=== PATIENT | male | born 1965 | race Caucasian/White ===

== ENCOUNTER 2019-08-02 22:39 | Emergency (ER) | payer MEDICAID, SELFPAY | END 2019-08-02 23:16 | disposition home or self-care (01) | PROVIDERS: Emergency Provider Emergency Medicine; Visit Provider Emergency Medicine | DX: S39.012A Strain of muscle, fascia and tendon of lower back, initial encounter (principal); M54.41 Lumbago with sciatica, right side; X50.9XXA Other and unspecified overexertion or strenuous movements or postures, initial encounter; J44.9 Chronic obstructive pulmonary disease, unspecified; F17.210 Nicotine dependence, cigarettes, uncomplicated | CPT/HCPCS: 96372; 99284; J1885 ==

== ENCOUNTER 2019-08-17 00:27 | Emergency (ER) | payer MEDICAID, SELFPAY ==
[2019-08-17 00:31] VITALS: BP 149/94; PULSE 98; RESP 18; TEMP 36.4; O2SAT 97; BMI 25.8
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
--- NOTE | 2019-08-17 00:39 | PC.NURSE ---
Patient is a poor historian, upon asking him where he was patient stated I'm in [place], its may and I need to go víctor shopping . Patient keeps repeating please, don't be mad at me . Patient is aware that he lives in [place].
[2019-08-17 01:17] LABS: Basophils # 0.1 10^3/uL (0.0-0.1); Basophils % 0.8 %; Eosinophils # 0.3 10^3/uL (0.0-0.8); Eosinophils % 2.7 %; Hematocrit 49.1 % (42.0-52.0); Lymphocytes # 2.5 10^3/uL (0.8-4.8); Lymphocytes % 19.6 %; Mean Corpuscular HGB Conc 34.6 g/dL (30.0-36.0); Mean Corpuscular Hemoglobin 32.7 pg (28.0-34.0); Mean Corpuscular Volume 94.4 fL (80-94); Mean Platelet Volume 9.3 fL (7.4-10.4); Monocytes # 0.7 10^3/uL (0.2-0.9); Monocytes % 5.2 %; Neutrophils % 71.4 %; Nucleated Red Blood Cells % 0 %; Platelet Count 230 10^3/cmm (130-400); Red Cell Distribution Width 12.6 % (12.1-15.1); White Blood Count 12.6 10^3/uL (4.0-10.0)
[2019-08-17] MEDS: iohexol 300 mg/mL 100 mL Btl IV (01:27)
[2019-08-17 01:33] LABS: INR 0.92 (0.8-1.2)
[2019-08-17 01:38] LABS: Alanine Aminotransferase 22 U/L (0-41); Albumin Level 4.5 g/dL (3.5-5.2); Alkaline Phosphatase 98 IU/L (40-130); Anion Gap 17.8 (5-19); Aspartate Amino Transferase 36 U/L (0-40); Blood Urea Nitrogen 4 mg/dL (6-20); Calcium 9.3 mg/Dl (8.6-10.0); Carbon Dioxide 24 mmol/L (22-29); Chloride 103 mmol/L (98-107); Globulin 3.4 g/dL (1.3-4.6); Glomerular Filtration Rate 140.9 mL/min (90-130); Glucose 102 mg/dL (74-109); Potassium 3.8 mmol/L (3.5-5.1); Sodium 141 mmol/L (136-145); Total Bilirubin 0.3 mg/dL (0.15-1.2); Total Protein 7.9 g/dL (6.6-8.7)
[2019-08-17 01:44] VITALS: RESP 18
[2019-08-17] MEDS: morphine 4 mg/mL SDV 1 mL IVP (01:44)
[2019-08-17 03:07] LABS: Alcohol Level 335 mg/dL (0-10)
--- NOTE | 2019-08-17 10:47 | DCPLANNER ---
manager nuclear had message to schedule a follow up appointment for patient with Dr. Lawrence, ENT. manager nuclear called the office of Dr. Lawrence, spoke with Deonna, a follow up appointment was scheduled for Friday, August 25, 2019 at 1:[address] Lawrence. Clinic will call patient with appointment information.
--- NOTE | 2019-08-27 15:42 | DCPLANNER ---
Patient did not attend appointment scheduled for 08.25.19 with ENT.
== END 2019-08-17 02:19 | disposition home or self-care (01) ==
PROVIDERS: Emergency Provider Emergency Medicine
DX: S02.2XXA Fracture of nasal bones, initial encounter for closed fracture (principal); Y09 Assault by unspecified means; F17.210 Nicotine dependence, cigarettes, uncomplicated
CPT/HCPCS: 36415; 70450; 70486; 71260; 72125; 74177; 80053; 80307; 85025; 85610; 96375; 99281; J2270; Q9967

== ENCOUNTER 2019-09-18 08:40 | Emergency (ER) | payer MEDICAID, SELFPAY ==
[2019-09-18 08:40] VITALS: BMI 23.7
[2019-09-18 08:44] VITALS: BP 110/72; PULSE 95; RESP 20; TEMP 36.5; O2SAT 96
--- NOTE | 2019-09-18 08:54 | PC.NURSE ---
Patient presents to the ER for dental pain that has been present for 3 days. Patient states the pain is in both the upper and lower teeth, states pain is throbbing and constant. Patient smells of ETOH in ER, states he stopped drinking about 2 hours ago.
--- NOTE | 2019-09-18 08:55 | ED_ITS ---
Documented by User: [email or web address] Encarnacion 09/18/19 14:59 HPI - Dental/Oral General: Chief complaint: Dental/Oral Stated complaint: DENTAL PAIN; ETOH Time Seen by Provider: 09/18/19 08:46 History of Present Illness: MD Complaint: tooth pain Onset (ago): day(s) (3) Duration: constant Severity: moderate Severity scale (1-10): 8 Relieving factors: nothing Exacerbating factors: nothing Context: history of dental caries and poor dental care Associated symptoms: Reports gum swelling; Denies fever(s) Review of Systems Const: Denies: fever Eyes: Denies: change in vision ENMT: Reports: dental pain Card: Denies: chest pain, shortness of breath on exertion or shortness of breath when lying down Resp: Denies: shortness of breath GI: Denies: abdominal pain, nausea, vomiting, diarrhea, constipation, change in bowel habits or blood in stool : Denies: flank pain, painful urination or blood in urine Neuro: Reports: headache (due to dental pain) PFS ED PFSH: Social History Smoking and tobacco status: current every day smoker Physical Exam Const: COMMON NORMALS: oriented x3 HENMT: COMMON NORMALS: normocephalic HEAD & SCALP: normocephalic MOUTH: oral and palatal mucosa normal TEETH & GINGIVA: Yes caries (multiple throughout mouth), Yes gingiva abnormal edematous and diffusely erythematous and Yes poor dentition THROAT: posterior oropharynx normal and uvula midline Neck/C-Spine: COMMON NORMALS: supple GENERAL: Yes normal visual inspection Resp: COMMON NORMALS: normal respiratory effort, no retractions, no use of accessory muscles and clear to auscultation bilaterally AUSCULTATION: clear to auscultation bilaterally Cardio: COMMON NORMALS: regular rate, regular rhythm, S1 normal heart sound, S2 normal heart sound, no gallops, no clicks, no murmurs and peripheral pulses 2+ throughout RATE: regular rate RHYTHM: regular rhythm HEART SOUNDS: S1 normal and S2 normal PERIPHERAL PULSES: pulses 2+ throughout GI: COMMON NORMALS: normal to inspection, nondistended, normoactive bowel sounds, soft to palpation, non-tender and no masses PALPATION: Yes soft : COMMON NORMALS: Yes no CVA tenderness BLADDER/KIDNEY EXAM: Yes no CVA tenderness Back/Pelvis: COMMON NORMALS: no CVA tenderness Extremity: COMMON NORMALS: normal to inspection Neuro: COMMON NORMALS: oriented x3 and moves all extremities Skin: GENERAL SKIN EXAM: dry skin Course Vital Signs: Vital signs: Vital Signs Temperature 97.9 F 09/18/19 09:35 Pulse Rate 81 09/18/19 09:35 Respiratory Rate 18 09/18/19 09:35 Blood Pressure 137/87 09/18/19 09:35 Pulse Oximetry 96 09/18/19 09:35 Discharge Plan Discharge Patient Disposition: Home, Self-Care Clinical Impression: Toothache, Dental caries Condition: Stable Prescriptions: New clindamycin HCl 150 mg capsule 300 mg PO Q6H 7 Days Qty: 56 RF: 0 Discharge Orders: Discharge Order (Routine); Ordered 09/18/19 Ordered By: Pavan Marie Referrals: NOT ON FILE,DOCTOR [Primary Care Provider] - Discharge Diet: Regular Discharge Activity: Resume usual activity Patient Instructions: Dental Caries (ED), Toothache (ED) Activity Restrictions/Additional Instructions: Follow-up with your dentist on Friday to schedule an appointment to address dental pain. Take antibiotic as prescribed. Take Over the counter ibuprofen or Tylenol for pain per instructions on the bottle. Apply cold compress to outside of jaw to help with symptoms. Discharge Date/Time: 09/18/19 09:35 Coding Level of Care Code ED Cigarette Packing Machine Operator for Chg Fwd Exam Detailed Documented by User: Macario Gibson MD, [place] 09/18/19 23:59 HPI - Dental/Oral General: Chief complaint: Dental/Oral Stated complaint: DENTAL PAIN; ETOH Time Seen by Provider: 09/18/19 08:46 PFSH ED PFSH: Social History Smoking and tobacco status: current every day smoker Course Vital Signs: Vital signs: Vital Signs Temperature 97.9 F 02/15/20 09:35 Pulse Rate 81 09/18/19 09:35 Respiratory Rate 18 09/18/19 09:35 Blood Pressure 137/87 09/18/19 09:35 Pulse Oximetry 96 09/18/19 09:35 Discharge Plan Discharge Patient Disposition: Home, Self-Care Clinical Impression: Toothache, Dental caries Condition: Stable Prescriptions: New clindamycin HCl 150 mg capsule 300 mg PO Q6H 7 Days Qty: 56 RF: 0 Discharge Orders: Discharge Order (Routine); Ordered 09/18/19 Ordered By: Pavan Marie Referrals: NOT ON FILE,DOCTOR [Primary Care Provider] - Discharge Diet: Regular Discharge Activity: Resume usual activity Patient Instructions: Dental Caries (ED), Toothache (ED) Activity Restrictions/Additional Instructions: Follow-up with your dentist on Friday to schedule an appointment to address dental pain. Take antibiotic as prescribed. Take Over the counter ibuprofen or Tylenol for pain per instructions on the bottle. Apply cold compress to outside of jaw to help with symptoms. Discharge Date/Time: 09/18/19 09:35 Coding Level of Care Code ED Cigarette Packing Machine Operator for [place] Fwd Exam Detailed
[2019-09-18] MEDS: HYDROcodone-acetaminophen 7.5-325 mg Tablet 1 TAB PO (09:29)
[2019-09-18 09:35] VITALS: BP 137/87; PULSE 81; RESP 18; TEMP 36.6; O2SAT 96
== END 2019-09-18 09:35 | disposition home or self-care (01) ==
PROVIDERS: Emergency Provider Physician Assistant
DX: K02.9 Dental caries, unspecified (principal); F17.200 Nicotine dependence, unspecified, uncomplicated
CPT/HCPCS: 99281; 99282

== ENCOUNTER 2019-09-18 08:40 | Emergency (ER) | payer MEDICAID, SELFPAY | END 2019-09-18 09:35 | disposition home or self-care (01) | LOC: ER 09-24 06:33 | PROVIDERS: Emergency Provider Physician Assistant | DX: K08.89 Other specified disorders of teeth and supporting structures (principal); K02.9 Dental caries, unspecified; F17.210 Nicotine dependence, cigarettes, uncomplicated ==

== ENCOUNTER 2020-05-20 12:49 | Emergency (ER) | payer MEDICAID, SELFPAY ==
[2020-05-20 12:50] VITALS: BP 114/61; PULSE 86; RESP 20; TEMP 36.7; O2SAT 96; BMI 20.9
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
[2020-05-20 14:05] LABS: Basophils # 0.1 10^3/uL (0.0-0.1); Basophils % 1.2 %; Eosinophils # 0.3 10^3/uL (0.0-0.8); Eosinophils % 4.3 %; Hematocrit 50.1 % (42.0-52.0); Hemoglobin 16.8 g/dL (11.7-16.6); Lymphocytes # 2.3 10^3/uL (0.8-4.8); Lymphocytes % 33.5 %; Mean Corpuscular HGB Conc 33.5 g/dL (30.0-36.0); Mean Corpuscular Volume 98.4 fL (80-94); Mean Platelet Volume 9.1 fL (7.4-10.4); Monocytes # 0.4 10^3/uL (0.2-0.9); Monocytes % 5.3 %; Neutrophils # 3.75 10^3/uL (1.8-7.7); Neutrophils % 55.4 %; Nucleated Red Blood Cells % 0 %; Platelet Count 187 10^3/cmm (130-400); Red Blood Count 5.09 10^6/uL (4.1-5.3); Red Cell Distribution Width 12.2 % (12.1-15.1); White Blood Count 6.8 10^3/uL (4.0-10.0)
[2020-05-20] MEDS: orphenadrine 30 mg/mL Inj 2 mL 60 MG IM (14:10)
[2020-05-20] MEDS: ketorolac 60 mg/2 mL INJ IM (14:11)
[2020-05-20 14:31] LABS: Add Urine Microscopic? NO
[2020-05-20 14:35] LABS: Alanine Aminotransferase 20 U/L (0-41); Albumin Level 4.1 g/dL (3.5-5.2); Alcohol Level 169 mg/dL (0-10); Alkaline Phosphatase 80 IU/L (40-130); Aspartate Amino Transferase 25 U/L (0-40); Blood Urea Nitrogen 6 mg/dL (6-20); Calcium 8.9 mg/dL (8.5-10.5); Carbon Dioxide 25 mmol/L (22-29); Chloride 104 mmol/L (98-107); Globulin 3.2 g/dL (1.3-4.6); Glomerular Filtration Rate 173.3 mL/min (90-130); Glucose 91 mg/dL (65-115); Osmolality Calculated 283 mOsm/kg (285-295); Sodium 138 mmol/L (136-145); Total Bilirubin 0.3 mg/dL (0.15-1.2); Total Protein 7.3 g/dL (6.6-8.7)
[2020-05-20 14:45] LABS: Protein Urine Neg (Negative); Urine Appearance Clear (CLEAR); Urine Color Dark Yellow (Yellow); pH Urine 5 (5-7)
[2020-05-20 14:46] LABS: Bilirubin Urine Neg (Negative); Blood Urine Neg (Negative); Glucose Urine UA Norm (Normal); Ketones Urine 1+ (Negative); Leukocyte Esterase Urine Negative (Negative); Nitrate Urine Negative (Negative); Urobilinogen Urine 1 mg/dL (Negative)
[2020-05-20 15:29] VITALS: BP 121/77; PULSE 61; RESP 20; TEMP 37
== END 2020-05-20 15:32 | disposition home or self-care (01) ==
PROVIDERS: Emergency Provider Family Medicine
DX: S39.92XA Unspecified injury of lower back, initial encounter (principal); W20.8XXA Other cause of strike by thrown, projected or falling object, initial encounter; F17.210 Nicotine dependence, cigarettes, uncomplicated
CPT/HCPCS: 12345; 36415; 72131; 80053; 80307; 81003; 85025; 96372; 99282; 99283; J1885; J2360

== ENCOUNTER 2021-04-04 23:00 | Emergency (ER) | payer MEDICAID, SELFPAY ==
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
[2021-04-04 23:03] VITALS: BP 126/92; PULSE 102; RESP 22; TEMP 36.4; O2SAT 96; BMI 26.4
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
[2021-04-04] MEDS: tetanus-dipt-pertussis 0.5 mL SDV IM (23:39)
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
[2021-04-04 23:55] VITALS: RESP 18
[2021-04-04] MEDS: morphine 4 mg/mL SDV 1 mL IVP (23:55)
[2021-04-05 00:47] VITALS: PULSE 98; RESP 16; O2SAT 100
== END 2021-04-05 00:38 | disposition home or self-care (01) ==
PROVIDERS: Emergency Provider Emergency Medicine
DX: S61.411A Laceration without foreign body of right hand, initial encounter (principal); S41.012A Laceration without foreign body of left shoulder, initial encounter; S51.812A Laceration without foreign body of left forearm, initial encounter; X99.9XXA Assault by unspecified sharp object, initial encounter; F17.210 Nicotine dependence, cigarettes, uncomplicated; Z23 Encounter for immunization
CPT/HCPCS: 12004; 71045; 71260; 90471; 90715; 96374; 99283; J2270

== ENCOUNTER 2022-04-16 18:46 | Emergency (ER) | payer MEDICAID, SELFPAY ==
[2022-04-16 18:54] VITALS: BP 129/80; PULSE 80; RESP 18; TEMP 36.6; O2SAT 94; BMI 21.9
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
--- NOTE | 2022-04-16 19:43 | CTR_ITS ---
PROCEDURE INFORMATION: Exam: CT Abdomen And Pelvis Without Contrast Exam date and time: 04/16/2022 7:51 PM Age: 56 years old Clinical indication: Abdominal pain; Right; Patient HX: RT flank/inguinal pain with hematuria. ; Additional info: Right inguinal pain, hematuria TECHNIQUE: Imaging protocol: Computed tomography of the abdomen and pelvis without contrast. Radiation optimization: All CT scans at this facility use at least one of these dose optimization techniques: automated exposure control; mA and/or kV adjustment per patient size (includes targeted exams where dose is matched to clinical indication); or iterative reconstruction. COMPARISON: CT chest abd pel w con* 08/17/2019 1:35 AM RADIATION DOSE METRICS: Total DLP (mGy-cm): 382.06 FINDINGS: Lungs: Emphysematous changes. Liver: Normal. No mass. Gallbladder and bile ducts: Normal. No calcified stones. No ductal dilation. Pancreas: Normal. No ductal dilation. Spleen: Normal. No splenomegaly. Adrenal glands: Normal. No mass. Kidneys and ureters: Minimal bilateral hydronephrosis and hydroureter without obstructing lesion seen. Mild perinephric edema bilaterally likely related to chronic renal insufficiency, pyelonephritis is felt less likely. Stomach and bowel: Unremarkable. No obstruction. No mucosal thickening. Appendix: No evidence of appendicitis. Intraperitoneal space: Unremarkable. No free air. No significant fluid collection. Vasculature: Unremarkable. No abdominal aortic aneurysm. Lymph nodes: Unremarkable. No enlarged lymph nodes. Urinary bladder: Unremarkable as visualized. Reproductive: Unremarkable as visualized. Bones/joints: Left femoral head subchondral degenerative cyst. Soft tissues: Unremarkable. CT/CT kidney stone [id number] IMPRESSION: 1. Minimal bilateral hydronephrosis and hydroureter without obstructing lesion seen. 2. Mild perinephric edema bilaterally likely related to chronic renal insufficiency, pyelonephritis is felt less likely. 3. Emphysematous changes. 4. Left femoral head subchondral degenerative cyst.
[2022-04-16 19:45] LABS: Basophils # 0.1 10^3/uL (0.0-0.1); Eosinophils # 0.3 10^3/uL (0.0-0.8); Eosinophils % 3.3 %; Hemoglobin 16.3 g/dL (11.7-16.6); Lymphocytes # 2.7 10^3/uL (0.8-4.8); Lymphocytes % 29.3 %; Mean Corpuscular HGB Conc 34.7 g/dL (30.0-36.0); Mean Corpuscular Hemoglobin 33.3 pg (28.0-34.0); Mean Corpuscular Volume 96.1 fl (80-94); Mean Platelet Volume 9.4 fL (7.4-10.4); Monocytes # 0.6 10^3/uL (0.2-0.9); Monocytes % 6.4 %; Neutrophils # 5.49 10^3/uL (1.8-7.7); Neutrophils % 59.6 %; Nucleated Red Blood Cells % 0 %; Platelet Count 198 10^3/cmm (130-400); Red Blood Count 4.89 10^6/uL (4.1-5.3); Red Cell Distribution Width 12.4 % (12.1-15.1); White Blood Count 9.2 10^3/uL (4.0-10.0)
[2022-04-16 20:20] LABS: Alanine Aminotransferase 29 U/L (0-41); Albumin Level 3.9 g/dL (3.5-5.2); Alkaline Phosphatase 90 U/L (40-130); Anion Gap 15.5 (5-19); Aspartate Amino Transferase 33 U/L (0-40); Blood Urea Nitrogen 4 mg/dL (6-20); Calcium 8.5 mg/dL (8.5-10.5); Carbon Dioxide 23 mmol/L (22-29); Chloride 99 mmol/L (98-107); Globulin 3.4 g/dL (1.3-4.6); Glucose 85 mg/dL (65-115); Lipase 85 U/L (13-60); Osmolality Calculated 274 mOsm/kg (285-295); Potassium 3.5 mmol/L (3.5-5.1); Sodium 134 mmol/L (136-145); Total Bilirubin 0.4 mg/dL (0.15-1.2); Total Protein 7.3 g/dL (6.6-8.7)
[2022-04-16 20:28] LABS: Add Urine Microscopic? NO; Charge for UA Resulting for Rev
[2022-04-16 20:41] LABS: Bilirubin Urine Neg (Negative); Blood Urine Neg (Negative); Glucose Urine UA Norm (Normal); Ketones Urine Negative (Negative); Leukocyte Esterase Urine Negative (Negative); Nitrate Urine Negative (Negative); Protein Urine Neg (Negative); Urine Appearance Clear (CLEAR); Urine Color Yellow (Yellow); Urobilinogen Urine Norm (Negative); pH Urine 6 (5-7)
[2022-04-16] MEDS: cefTRIAXone 1,000 MG in sodium chloride 0.9% (plus) 50 ML 100 MG IV (20:45)
[2022-04-16] MEDS: HYDROcodone-acetaminophen 5-325 mg Tablet 1 TAB PO (20:46)
[2022-04-16 21:28] VITALS: BP 143/77; PULSE 88; RESP 18; O2SAT 97
--- NOTE | 2022-04-17 10:19 | DCPLANNER ---
Addendum entered by Debbie Eid 05/22/22 12:59: Patient had a follow up scheduled with urology - patient did not attend appointment. Addendum entered by Debbie Eid 04/17/22 13:57: Patient has a follow up appointment scheduled for Tuesday, May 10, 2022 at 9:[address] Quispe at urology. Clinic will call patient with appointment information. Original Note: sheep farm manager had message to schedule a follow up appointment for patient with urology. sheep farm manager sent patients information to the front office staff at urology. Patients information will be printed and reviewed. Clinic will call patient with appointment information.
== END 2022-04-16 21:29 | disposition home or self-care (01) ==
PROVIDERS: Emergency Provider Nurse Practitioner Family
DX: R10.31 Right lower quadrant pain (principal); R31.0 Gross hematuria; F17.210 Nicotine dependence, cigarettes, uncomplicated
CPT/HCPCS: 74176; 80053; 81003; 83690; 85025; 96365; 99285; J0696

== ENCOUNTER 2022-05-05 16:37 | Emergency (ER) | payer MEDICAID, SELFPAY ==
[2022-05-05 16:38] VITALS: BP 97/52; PULSE 89; RESP 18; TEMP 36.6; O2SAT 94; BMI 25.1
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
--- NOTE | 2022-05-05 16:59 | CTR_ITS ---
PROCEDURE INFORMATION: Exam: CT Abdomen And Pelvis With Contrast Exam date and time: 05/05/2022 5:02 PM Age: 56 years old Clinical indication: Abdominal pain; Localized; Right; RT inguinal hernia; TECHNIQUE: Imaging protocol: Computed tomography of the abdomen and pelvis with contrast. Radiation optimization: All CT scans at this facility use at least one of these dose optimization techniques: automated exposure control; mA and/or kV adjustment per patient size (includes targeted exams where dose is matched to clinical indication); or iterative reconstruction. Contrast material: OMNI 350; Contrast volume: 80 ml; Contrast route: INTRAVENOUS (IV); COMPARISON: CT kidney stone [id number] 04/16/2022 7:51 PM RADIATION DOSE METRICS: Total DLP (mGy-cm): 386.69 FINDINGS: Lungs: There are emphysematous changes at the lung bases. Liver: Normal. No mass. Gallbladder and bile ducts: Normal. No calcified stones. No ductal dilation. Pancreas: Normal. No ductal dilation. Spleen: Normal. No splenomegaly. Adrenal glands: Normal. No mass. Kidneys and ureters: Normal. No hydronephrosis. Stomach and bowel: Unremarkable. No obstruction. No mucosal thickening. Appendix: No evidence of appendicitis. Intraperitoneal space: Unremarkable. No free air. No significant fluid collection. Vasculature: Unremarkable. No abdominal aortic aneurysm. Lymph nodes: Unremarkable. No enlarged lymph nodes. Urinary bladder: Unremarkable as visualized. Reproductive: Unremarkable as visualized. Bones/joints: There is a transitional lumbosacral vertebra. Degenerative changes are present in the visualized spine. There is are pseudocysts at the anterolateral aspect of the femoral head/neck junctions associated with mild convexity. 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 Soft tissues: Unremarkable. CT/CT abdomen pelvis w con* [id number] IMPRESSION: No acute findings. There are emphysematous changes at the lung bases.
[2022-05-05] MEDS: iohexol 350 mg/mL 100 mL Btl IV (17:08)
[2022-05-05 17:11] VITALS: BP 119/63; PULSE 84; O2SAT 95
[2022-05-05] MEDS: ondansetron 2 mg/ML SDV 2 mL 4 MG IVP (17:26)
[2022-05-05] MEDS: ketorolac 30 mg/mL INJ IVP (17:26)
[2022-05-05] MEDS: lactated ringers 1,000 ML 999 ML IV (17:26)
[2022-05-05 17:54] LABS: Add Urine Microscopic? NO; Charge for UA Resulting for Rev
[2022-05-05 17:55] LABS: Bilirubin Urine Negative (Negative); Blood Urine Negative (Negative); Glucose Urine UA Negative (Normal); Ketones Urine Negative (Negative); Leukocyte Esterase Urine Negative (Negative); Nitrate Urine Negative; Protein Urine Negative; Specific Gravity, Urine <= 1.005 (1.005-1.030); Urine Appearance Clear (CLEAR); Urobilinogen Urine 0.2 mg/dL (Negative); pH Urine 5.5 (5-7)
[2022-05-05 17:56] LABS: Urine Color Colorless (Yellow)
[2022-05-05 18:02] LABS: Basophils # 0.1 10^3/uL (0.0-0.1); Basophils % 1.7 %; Eosinophils # 0.3 10^3/uL (0.0-0.8); Eosinophils % 3.8 %; Hematocrit 49.1 % (42.0-52.0); Lymphocytes # 2.8 10^3/uL (0.8-4.8); Lymphocytes % 36.7 %; Mean Corpuscular HGB Conc 34.6 g/dL (30.0-36.0); Mean Corpuscular Hemoglobin 33.5 pg (28.0-34.0); Mean Corpuscular Volume 96.7 fl (80-94); Mean Platelet Volume 9.1 fL (7.4-10.4); Monocytes # 0.4 10^3/uL (0.2-0.9); Monocytes % 4.5 %; Neutrophils # 4.09 10^3/uL (1.8-7.7); Neutrophils % 52.9 %; Nucleated Red Blood Cells % 0 %; Platelet Count 229 10^3/cmm (130-400); Red Blood Count 5.08 10^6/uL (4.1-5.3); Red Cell Distribution Width 12.6 % (12.1-15.1); White Blood Count 7.7 10^3/uL (4.0-10.0)
--- NOTE | 2022-05-05 18:25 | PC.NURSE ---
PT BECAME UPSET AND REQUESTED TO LEAVE THE ER. DR ARCE GAVE VERBAL ORDER TO DC SECOND LITER OF FLUIDS. IV REMOVED. PT DISCHARGED.
[2022-05-05 18:30] LABS: Alanine Aminotransferase 15 U/L (0-41); Albumin Level 3.8 g/dL (3.5-5.2); Alkaline Phosphatase 77 U/L (40-130); Anion Gap 11.9 (5-19); Aspartate Amino Transferase 27 U/L (0-40); Blood Urea Nitrogen 7 mg/dL (6-20); Calcium 8.4 mg/dL (8.5-10.5); Carbon Dioxide 26 mmol/L (22-29); Chloride 106 mmol/L (98-107); Globulin 3.1 g/dL (1.3-4.6); Glomerular Filtration Rate 139.4 mL/min (90-130); Glucose 78 mg/dL (65-115); Osmolality Calculated 287 mOsm/kg (285-295); Potassium 3.9 mmol/L (3.5-5.1); Sodium 140 mmol/L (136-145); Total Bilirubin 0.2 mg/dL (0.15-1.2); Total Protein 6.9 g/dL (6.6-8.7)
[2022-05-05 18:33] LABS: Creatinine Clr Calc Pharmacy 151.3532
== END 2022-05-05 18:20 | disposition home or self-care (01) ==
PROVIDERS: Emergency Provider Family Medicine
DX: S39.011A Strain of muscle, fascia and tendon of abdomen, initial encounter (principal); F10.10 Alcohol abuse, uncomplicated; F17.210 Nicotine dependence, cigarettes, uncomplicated; X58.XXXA Exposure to other specified factors, initial encounter
CPT/HCPCS: 36415; 51798; 74177; 80053; 81003; 85025; 96361; 96374; 96375; 99285; J1885; J2405; Q9967

== ENCOUNTER 2022-05-12 18:15 | Emergency (ER) | payer MEDICAID, SELFPAY ==
[2022-05-12 18:20] VITALS: BP 131/82; PULSE 91; RESP 18; TEMP 36.6; O2SAT 95; BMI 21.5
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
[2022-05-12 19:00] LABS: Add Urine Microscopic? NO; Charge for UA Resulting for Rev
--- NOTE | 2022-05-12 19:01 | PC.NURSE ---
report given to ALBA Mas
[2022-05-12 19:02] LABS: Basophils # 0.1 10^3/uL (0.0-0.1); Basophils % 0.9 %; Eosinophils # 0.3 10^3/uL (0.0-0.8); Eosinophils % 3.5 %; Hematocrit 45.9 % (42.0-52.0); Hemoglobin 16.2 g/dL (11.7-16.6); Lymphocytes # 3.2 10^3/uL (0.8-4.8); Lymphocytes % 35.6 %; Mean Corpuscular HGB Conc 35.3 g/dL (30.0-36.0); Mean Corpuscular Hemoglobin 33.6 pg (28.0-34.0); Mean Corpuscular Volume 95.2 fl (80-94); Mean Platelet Volume 9.2 fL (7.4-10.4); Monocytes # 0.4 10^3/uL (0.2-0.9); Neutrophils # 4.97 10^3/uL (1.8-7.7); Neutrophils % 55.7 %; Nucleated Red Blood Cells % 0 %; Platelet Count 196 10^3/cmm (130-400); Red Blood Count 4.82 10^6/uL (4.1-5.3); Red Cell Distribution Width 12.5 % (12.1-15.1); White Blood Count 8.9 10^3/uL (4.0-10.0)
--- NOTE | 2022-05-12 19:02 | PC.NURSE ---
pt c/o inguinal pain. Hernia is prominent when pt is baring down but reduces on its own. pt also reports to have drank multiple cans of beer today. denies drug use. denies SI/HI. Pt initially agitated, verbally aggressive towards staff. pt able to be redirected. pt cooperative. pt lung sounds clear bilat. bowel sounds present. pt admits to urinating on self. linens changed, pt changed into paper scrubs and belongings moved to NPU closet.
[2022-05-12 19:06] LABS: Bilirubin Urine Neg (Negative); Blood Urine Neg (Negative); Glucose Urine UA Norm (Normal); Ketones Urine Negative (Negative); Leukocyte Esterase Urine Negative (Negative); Nitrate Urine Negative (Negative); Protein Urine Neg (Negative); Specific Gravity, Urine 1.005 (1.005-1.030); Urine Appearance Clear (CLEAR); Urine Color Colorless (Yellow); Urobilinogen Urine Neg (Negative); pH Urine 5 (5-7)
--- NOTE | 2022-05-12 19:07 | USR_ITS ---
PROCEDURE INFORMATION: Exam: US Scrotum Exam date and time: 05/12/2022 7:32 PM Age: 56 years old Clinical indication: Groin pain; Additional info: Eval R inguinal hernia TECHNIQUE: Imaging protocol: Real-time ultrasound of the scrotum and contents with color Doppler and image documentation. COMPARISON: CT abdomen pelvis w con* [id number] 05/05/2022 5:02 PM FINDINGS: Right testicle: Normal. No mass. No torsion. Normal vascular flow. Left testicle: Normal. No mass. No torsion. Normal vascular flow. Epididymides: Normal. Scrotum: Small right hydrocele. Lymph nodes: Right inguinal 12 mm probable lymph node in the area of concern noted by the patient. Additionally there is a possible small hernia containing omentum with a defect in abdominal wall measuring 7 mm corresponding to the abnormality noted by the patient. US/US scrotum [id number] IMPRESSION: 1. Testicles appear within normal limits bilaterally with color blood flow. 2. Small right hydrocele. 3. Right inguinal 12 mm probable lymph node in the area of concern noted by the patient. Additionally there is a possible small hernia containing omentum with a defect in abdominal wall measuring 7 mm corresponding to the abnormality noted by the patient.
[2022-05-12] MEDS: ketorolac 30 mg/mL INJ IVP (19:21)
[2022-05-12 19:28] LABS: Alanine Aminotransferase 21 U/L (0-41); Albumin Level 4.1 g/dL (3.5-5.2); Alkaline Phosphatase 77 U/L (40-130); Anion Gap 13.7 (5-19); Aspartate Amino Transferase 36 U/L (0-40); Blood Urea Nitrogen 6 mg/dL (6-20); Calcium 8.2 mg/dL (8.5-10.5); Carbon Dioxide 25 mmol/L (22-29); Chloride 106 mmol/L (98-107); Globulin 3.3 g/dL (1.3-4.6); Glucose 90 mg/dL (65-115); Lipase 75 U/L (13-60); Osmolality Calculated 289 mOsm/kg (285-295); Potassium 3.7 mmol/L (3.5-5.1); Sodium 141 mmol/L (136-145); Total Bilirubin 0.2 mg/dL (0.15-1.2); Total Protein 7.4 g/dL (6.6-8.7)
[2022-05-12 19:29] LABS: Lactate (Lactic Acid level) 1.2 mmol/L (0.5-2.2)
[2022-05-12 19:49] LABS: Alcohol Level 356 mg/dL (0-10)
[2022-05-12] MEDS: morphine 4 mg/mL SDV 1 mL IVP (20:16)
== END 2022-05-12 21:39 | disposition home or self-care (01) ==
PROVIDERS: Emergency Provider Emergency Medicine
DX: K40.90 Unilateral inguinal hernia, without obstruction or gangrene, not specified as recurrent (principal); F10.129 Alcohol abuse with intoxication, unspecified; Y90.8 Blood alcohol level of 240 mg/100 ml or more; F17.210 Nicotine dependence, cigarettes, uncomplicated
CPT/HCPCS: 76870; 80053; 80307; 81003; 83605; 83690; 85025; 96374; 96375; 99285; J1885; J2270

== ENCOUNTER 2022-05-23 03:35 | Emergency (ER) | payer MEDICAID, SELFPAY ==
[2022-05-23 03:37] VITALS: BP 129/81; PULSE 98; RESP 16; TEMP 36.6; O2SAT 97; BMI 24.3
--- NOTE | 2022-05-23 03:41 | ED_ITS ---
HPI - Abdominal Pain General: Chief Complaint: Abdominal Pain Stated Complaint: RIGHT LOWER ABD PAIN Time Seen by Provider: 05/23/22 03:36 Source: patient and EMS Mode of arrival: EMS Limitations: no limitations History of Present Illness: 56-year-old male who has a history of a right inguinal hernia he has been seen here multiple times for that he has missed his follow-ups with general surgery states that tonight he is having pain and states that the hernia has popped out. He states his pain is sharp in nature rates it a 6 out of 10 denies any vomiting or diarrhea patient is a chronic alcoholic he has been drinking tonight as well. Associated Symptoms: Denies chills, dysuria and fever(s) Review of Systems Const: Denies: fever(s), chills, body aches or change in appetite Eyes: Denies: blurry vision or eye discomfort ENMT: Denies: throat pain or dental pain Card: Denies: chest pain Resp: Denies: dyspnea GI: Reports: abdominal pain : Denies: dysuria Musc: Denies: neck pain or back pain Skin/Breast: Denies: rash Neuro: Denies: headache(s) Psych: Denies: depression Cecilio/Lymph: Denies: easy bruising All/Imm: Denies: urticaria PFSH ED PFSH: Medical History Alcohol use Groin pain Social History Smoking and tobacco status: current every day smoker Alcohol intake: current Alcohol intake frequency: 3 or more drinks per day Alcohol type: hard liquor Desire information about alcohol rehabilitation?: No (No interest in stopping drinking) Physical Exam Const: COMMON NORMALS: no acute distress, patient oriented x3 and healthy appearing HENMT: COMMON NORMALS: normocephalic and atraumatic HEAD & SCALP: normocephalic and atraumatic Eye: COMMON NORMALS: Equal, round and reactive pupils present and EOMs intact bilaterally PUPIL: Yes Equal, round and reactive pupils present Neck/C-Spine: COMMON NORMALS: full ROM and supple Chest: COMMONS NORMALS: normal inspection of the chest and normal palpation of entire chest wall Resp: COMMON NORMALS: normal respiratory effort, No retractions, No use of accessory muscles and clear to auscultation bilaterally AUSCULTATION: clear to auscultation bilaterally Cardio: COMMON NORMALS: regular rate, regular rhythm and No murmurs present (Cardio) RATE: regular rate RHYTHM: regular rhythm GI: OTHER: Right inguinal hernia noted on exam Extremity: COMMON NORMALS: normal to inspection and full ROM Neuro: COMMON NORMALS: patient oriented x3, moves all extremities and no focal motor deficits Psych: COMMON NORMALS: mental status grossly normal, Normal thought process present and cooperative THOUGHT PROCESS: Normal thought process present Skin: COMMON NORMALS: no rashes or lesions noted and no wounds GENERAL SKIN EXAM: no rashes or lesions noted Course Vital Signs: Vital signs: Vital Signs Temperature 97.9 F 05/23/22 03:37 Pulse Rate 97 05/23/22 03:48 Respiratory Rate 15 05/23/22 03:48 Blood Pressure 129/81 05/23/22 03:37 Pulse Oximetry 96 05/23/22 03:48 Oxygen Delivery Me thod 05/23/22 03:37 MDM - Abdominal Pain Medical Decision Making Patient presents with a right inguinal hernia that is very easily reduced he has no pain after blood work here is normal he stable for discharge we will attempt to get him follow-up with surgery again. He is return if worsening Lab Data : 05/23/22 03:47 05/23/22 03:47 Labs/Radiology: Laboratory Results WBC 9.2 10^3/uL (4.0-10.0) 05/23/22 03:47 RBC 4.57 10^6/uL (4.1-5.3) 05/23/22 03:47 Hgb 15.2 g/dL (11.7-16.6) 05/23/22 03:47 Hct 43.9 % (42.0-52.0) 05/23/22 03:47 MCV 96.1 fl (80-94) H 05/23/22 03:47 MCH 33.3 pg (28.0-34.0) 05/23/22 03:47 MCHC 34.6 g/dL (30.0-36.0) 05/23/22 03:47 RDW 12.4 % (12.1-15.1) 05/23/22 03:47 Plt Count 186 10^3/cmm (130-400) 05/23/22 03:47 MPV 9.0 fL (7.4-10.4) 05/23/22 03:47 Neut % (Auto) 63.2 % 05/23/22 03:47 Lymph % (Auto) 26.1 % 05/23/22 03:47 [place] % (Auto) 5.8 % 05/23/22 03:47 Eos % (Auto) 3.6 % 05/23/22 03:47 Baso % (Auto) 1.1 % 05/23/22 03:47 Neut # (Auto) 5.80 10^3/uL (1.8-7.7) 05/23/22 03:47 Lymph # (Auto) 2.4 10^3/uL (0.8-4.8) 05/23/22 03:47 [place] # (Auto) 0.5 10^3/uL (0.2-0.9) 05/23/22 03:47 Eos # (Auto) 0.3 10^3/uL (0.0-0.8) 05/23/22 03:47 Baso # (Auto) 0.1 10^3/uL (0.0-0.1) 05/23/22 03:47 Nucleated RBC % (auto) 0 % 05/23/22 03:47 Nucleated RBCs # 0.0 /100WBC 05/23/22 03:47 Sodium 133 mmol/L (136-145) L 05/23/22 03:47 Potassium 4.4 mmol/L (3.5-5.1) 05/23/22 03:47 Chloride 98 mmol/L (98-107) 05/23/22 03:47 Carbon Dioxide 23 mmol/L (22-29) 05/23/22 03:47 Anion Gap 16.4 (5-19) 05/23/22 03:47 BUN 4 mg/dL (6-20) L 05/23/22 03:47 Creatinine 0.5 mg/dL (0.7-1.2) L 05/23/22 03:47 GFR Calculation 172.0 mL/min (90-130) H 05/23/22 03:47 Glucose 96 mg/dL (65-115) 05/23/22 03:47 Calculated Osmolality 273 mOsm/kg (285-295) L 05/23/22 03:47 Calcium 9.0 mg/dL (8.5-10.5) 05/23/22 03:47 Total Bilirubin 0.4 mg/dL (0.15-1.2) 05/23/22 03:47 ALT U/L (0-41) 05/23/22 03:47 Alkaline Phosphatase 67 U/L (40-130) 05/23/22 03:47 Total Protein 7.5 g/dL (6.6-8.7) 05/23/22 03:47 Albumin 4.2 g/dL (3.5-5.2) 05/23/22 03:47 Globulin 3.3 g/dL (1.3-4.6) 05/23/22 03:47 Lipase 62 U/L (13-60) H 05/23/22 03:47 Discharge Plan Discharge Patient Disposition: Home Clinical Impression: Inguinal hernia Qualifiers: Obstruction and gangrene presence: without obstruction or gangrene Laterality: unilateral Recurrence: not specified as recurrent Qualified Code(s): K40.90 - Unilateral inguinal hernia, without obstruction or gangrene, not specified as recurrent Condition: Stable Prescriptions: No Action Advair Diskus 250-50 mcg/dose Blister With Device 1 inh INHALATION Q12H Discharge Orders: Discharge ED (Routine); Ordered 05/23/22 Ordered By: Jeremy Smith Discharge Diet: Advance as tolerated Discharge Activity: Resume usual activity Patient Instructions: Inguinal Hernia (ED) Coding Level of Care Code ED Personal Finance Instructor for Silviog Fwd Exam Comprehensive
[2022-05-23 03:48] VITALS: PULSE 97; RESP 15; O2SAT 96
[2022-05-23 03:52] LABS: Basophils # 0.1 10^3/uL (0.0-0.1); Basophils % 1.1 %; Eosinophils # 0.3 10^3/uL (0.0-0.8); Eosinophils % 3.6 %; Hematocrit 43.9 % (42.0-52.0); Hemoglobin 15.2 g/dL (11.7-16.6); Lymphocytes # 2.4 10^3/uL (0.8-4.8); Lymphocytes % 26.1 %; Mean Corpuscular HGB Conc 34.6 g/dL (30.0-36.0); Mean Corpuscular Hemoglobin 33.3 pg (28.0-34.0); Mean Corpuscular Volume 96.1 fl (80-94); Monocytes # 0.5 10^3/uL (0.2-0.9); Monocytes % 5.8 %; Neutrophils % 63.2 %; Nucleated Red Blood Cells % 0 %; Platelet Count 186 10^3/cmm (130-400); Red Blood Count 4.57 10^6/uL (4.1-5.3); Red Cell Distribution Width 12.4 % (12.1-15.1); White Blood Count 9.2 10^3/uL (4.0-10.0)
[2022-05-23 04:08] LABS: Albumin Level 4.2 g/dL (3.5-5.2); Alkaline Phosphatase 67 U/L (40-130); Anion Gap 16.4 (5-19); Blood Urea Nitrogen 4 mg/dL (6-20); Carbon Dioxide 23 mmol/L (22-29); Chloride 98 mmol/L (98-107); Globulin 3.3 g/dL (1.3-4.6); Glucose 96 mg/dL (65-115); Lipase 62 U/L (13-60); Osmolality Calculated 273 mOsm/kg (285-295); Potassium 4.4 mmol/L (3.5-5.1); Sodium 133 mmol/L (136-145); Total Bilirubin 0.4 mg/dL (0.15-1.2); Total Protein 7.5 g/dL (6.6-8.7)
[2022-05-23 04:53] VITALS: PULSE 99; RESP 20; O2SAT 96
[2022-05-23 05:06] LABS: Aspartate Amino Transferase 28 U/L (0-40)
--- NOTE | 2022-05-23 10:05 | DCPLANNER ---
Addendum entered by Debbie Eid 07/16/22 13:36: Patient had a follow up appointment scheduled with general surgery -patient did attend appointment. Addendum entered by Debbie Eid 06/27/22 08:28: Patient has a follow up appointment scheduled for Saturday, July 02, 2022 at 1:[address] Diaz at general surgery. Clinic will call patient with appointment information. Original Note: veterinary manager had message to schedule a follow up appointment for patient with general surgery. veterinary manager sent patients information to the front office staff at general surgery. Patients information will be printed and reviewed. Clinic will call patient with appointment information.
== END 2022-05-23 04:54 | disposition home or self-care (01) ==
PROVIDERS: Emergency Provider Emergency Medicine
DX: K40.90 Unilateral inguinal hernia, without obstruction or gangrene, not specified as recurrent (principal); F17.210 Nicotine dependence, cigarettes, uncomplicated
CPT/HCPCS: 80053; 83690; 85025; 99283

== ENCOUNTER 2022-05-27 22:06 | Emergency (ER) | payer MEDICAID, SELFPAY ==
[2022-05-27 22:08] VITALS: BP 165/83; PULSE 81; RESP 17; TEMP 36.4; O2SAT 95; BMI 25.8
--- NOTE | 2022-05-27 22:26 | ED_ITS ---
HPI - Male Genitourinary General: Chief complaint: Urogenital-Male Stated complaint: urinating blood Time Seen by Provider: 05/27/22 22:08 Source: patient and EMS Mode of arrival: EMS Limitations: no limitations History of Present Illness: 56-year-old male who is very well-known to the ER comes in tonight complaining of abdominal pain he does have a right inguinal hernia has been seen here multiple times for he is never followed up he has had chronic pain for many states that today he had hematuria as well he did give a urine sample here that shows no signs of hematuria whatsoever. He is resting comfortably he rates his pain a 2 out of 10 denies any fever denies any vomiting or diarrhea. Associated symptoms: Reports hematuria Review of Systems Const: Denies: fever(s), chills, body aches or change in appetite Eyes: Denies: blurry vision or eye discomfort ENMT: Denies: throat pain or dental pain Card: Denies: chest pain Resp: Denies: dyspnea GI: Reports: abdominal pain : Reports: hematuria Musc: Denies: neck pain or back pain Skin/Breast: Denies: rash Neuro: Denies: headache(s) Psych: Denies: depression Cecilio/Lymph: Denies: easy bruising All/Imm: Denies: urticaria PFSH ED PFSH: Medical History Alcohol use Groin pain Social History Smoking and tobacco status: current every day smoker Alcohol intake: current Alcohol intake frequency: 3 or more drinks per day Alcohol type: hard liquor Desire information about alcohol rehabilitation?: No (No interest in stopping drinking) Physical Exam Const: COMMON NORMALS: no acute distress, patient oriented x3 and healthy a ppearing GENERAL APPEARANCE: odor of alcohol detected HENMT: COMMON NORMALS: normocephalic and atraumatic HEAD & SCALP: normocephalic and atraumatic Eye: COMMON NORMALS: Equal, round and reactive pupils present and EOMs intact bilaterally PUPIL: Yes Equal, round and reactive pupils present Neck/C-Spine: COMMON NORMALS: full ROM and supple Chest: COMMONS NORMALS: normal inspection of the chest and normal palpation of entire chest wall Resp: COMMON NORMALS: normal respiratory effort, No retractions, No use of accessory muscles and clear to auscultation bilaterally AUSCULTATION: clear to auscultation bilaterally Cardio: COMMON NORMALS: regular rate, regular rhythm and No murmurs present (Cardio) RATE: regular rate RHYTHM: regular rhythm GI: COMMON NORMALS: Normal to inspection, nondistended, normoactive bowel sounds present, Soft to palpation, non-tender and no masses PALPATION: Yes Soft to palpation Extremity: COMMON NORMALS: normal to inspection and full ROM Neuro: COMMON NORMALS: patient oriented x3, moves all extremities and no focal motor deficits Psych: COMMON NORMALS: mental status grossly normal, Normal thought process present and cooperative THOUGHT PROCESS: Normal thought process present Skin: COMMON NORMALS: no rashes or lesions noted and no wounds GENERAL SKIN EXAM: no rashes or lesions noted Course Vital Signs: Vital signs: Vital Signs Temperature 97.6 F 05/27/22 22:08 Pulse Rate 81 05/27/22 22:08 Respiratory Rate 17 05/27/22 22:08 Blood Pressure 165/83 05/27/22 22:08 Pulse Oximetry 95 05/27/22 22:08 Oxygen Delivery Me thod 05/27/22 22:08 MDM - Male Medical Decision Making Patient presents here with abdominal pain from his inguinal hernia does not incarcerated its easily reduced he stable for discharge she is to follow-up with surgery return if worsening. Lab Data : 05/27/22 22:15 05/27/22 22:15 Laboratory Results WBC 9.0 10^3/uL (4.0-10.0) 05/27/22 22:15 RBC 4.81 10^6/uL (4.1-5.3) 05/27/22 22:15 Hgb 16.2 g/dL (11.7-16.6) 05/27/22 22:15 Hct 47.2 % (42.0-52.0) 05/27/22 22:15 MCV 98.1 fl (80-94) H 05/27/22 22:15 MCH 33.7 pg (28.0-34.0) 05/27/22 22:15 MCHC 34.3 g/dL (30.0-36.0) 05/27/22 22:15 RDW 12.7 % (12.1-15.1) 05/27/22 22:15 Plt Count 273 10^3/cmm (130-400) 05/27/22 22:15 MPV 8.9 fL (7.4-10.4) 05/27/22 22:15 Neut % (Auto) 57.9 % 05/27/22 22:15 Lymph % (Auto) 31.4 % 05/27/22 22:15 [place] % (Auto) 5.5 % 05/27/22 22:15 Eos % (Auto) 3.1 % 05/27/22 22:15 Baso % (Auto) 1.4 % 05/27/22 22:15 Neut # (Auto) 5.21 10^3/uL (1.8-7.7) 05/27/22 22:15 Lymph # (Auto) 2.8 10^3/uL (0.8-4.8) 05/27/22 22:15 Alexander # (Auto) 0.5 10^3/uL (0.2-0.9) 05/27/22 22:15 Eos # (Auto) 0.3 10^3/uL (0.0-0.8) 05/27/22 22:15 Baso # (Auto) 0.1 10^3/uL (0.0-0.1) 05/27/22 22:15 Nucleated RBC % (auto) 0 % 05/27/22 22:15 Nucleated RBCs # 0.0 /100WBC 05/27/22 22:15 PT 12.50 SECONDS (12.1-14.9) 05/27/22 22:44 INR 0.90 (0.8-1.2) 05/27/22 22:44 Sodium 138 mmol/L (136-145) 05/27/22 22:15 Potassium 3.9 mmol/L (3.5-5.1) 05/27/22 22:15 Chloride 102 mmol/L (98-107) 05/27/22 22:15 Carbon Dioxide 27 mmol/L (22-29) 05/27/22 22:15 Anion Gap 12.9 (5-19) 05/27/22 22:15 BUN 5 mg/dL (6-20) L 05/27/22 22:15 Creatinine 0.5 mg/dL (0.7-1.2) L 05/27/22 22:15 GFR Calculation 172.0 mL/min (90-130) H 05/27/22 22:15 Glucose 88 mg/dL (65-115) 05/27/22 22:15 Calculated Osmolality 283 mOsm/kg (285-295) L 05/27/22 22:15 Calcium 9.1 mg/dL (8.5-10.5) 05/27/22 22:15 Total Bilirubin 0.2 mg/dL (0.15-1.2) 05/27/22 22:15 AST 25 U/L (0-40) 05/27/22 22:15 ALT 20 U/L (0-41) 05/27/22 22:15 Alkaline Phosphatase 68 U/L (40-130) 05/27/22 22:15 Total Protein 7.4 g/dL (6.6-8.7) 05/27/22 22:15 Albumin 4.1 g/dL (3.5-5.2) 05/27/22 22:15 Globulin 3.3 g/dL (1.3-4.6) 05/27/22 22:15 Urine Color Yellow (Yellow) 05/27/22 22:12 Urine Appearance Clear (CLEAR) 05/27/22 22:12 Urine pH 5 (5-7) 05/27/22 22:12 Ur Specific [place] 1.000 (1.005-1.030) L 05/27/22 22:12 Urine Protein Neg (Negative) 05/27/22 22:12 Urine Glucose (UA) Norm (Normal) 05/27/22 22:12 Urine Ketones Negative (Negative) 05/27/22 22:12 Urine Blood Neg (Negative) 05/27/22 22:12 Urine Nitrate Negative (Negative) 05/27/22 22:12 Urine Bilirubin Neg (Negative) 05/27/22 22:12 Urine Urobilinogen Norm mg/dL (Negative) 05/27/22 22:12 Ur Leukocyte Esterase Negative (Negative) 05/27/22 22:12 Discharge Plan Discharge Patient Disposition: Home Clinical Impression: Inguinal hernia Condition: Stable Prescriptions: No Action Advair Diskus 250-50 mcg/dose Blister With Device 1 inh INHALATION Q12H Discharge Orders: Discharge ED (Routine); Ordered 05/27/22 Ordered By: Jeremy Smith Referrals: Ezio Baldwin MD [Physician] - 1-3 days Discharge Diet: Advance as tolerated Discharge Activity: Resume usual activity Patient Instructions: Abdominal Pain (ED) Coding Level of Care Code ED Instructional Technologist for Chg Fwd Exam Comprehensive
[2022-05-27 22:53] LABS: Alanine Aminotransferase 20 U/L (0-41); Albumin Level 4.1 g/dL (3.5-5.2); Alkaline Phosphatase 68 U/L (40-130); Anion Gap 12.9 (5-19); Aspartate Amino Transferase 25 U/L (0-40); Blood Urea Nitrogen 5 mg/dL (6-20); Calcium 9.1 mg/dL (8.5-10.5); Carbon Dioxide 27 mmol/L (22-29); Chloride 102 mmol/L (98-107); Globulin 3.3 g/dL (1.3-4.6); Glucose 88 mg/dL (65-115); Osmolality Calculated 283 mOsm/kg (285-295); Potassium 3.9 mmol/L (3.5-5.1); Sodium 138 mmol/L (136-145); Total Bilirubin 0.2 mg/dL (0.15-1.2); Total Protein 7.4 g/dL (6.6-8.7)
[2022-05-27 22:55] LABS: Basophils # 0.1 10^3/uL (0.0-0.1); Basophils % 1.4 %; Eosinophils # 0.3 10^3/uL (0.0-0.8); Eosinophils % 3.1 %; Hematocrit 47.2 % (42.0-52.0); Hemoglobin 16.2 g/dL (11.7-16.6); Lymphocytes # 2.8 10^3/uL (0.8-4.8); Lymphocytes % 31.4 %; Mean Corpuscular HGB Conc 34.3 g/dL (30.0-36.0); Mean Corpuscular Hemoglobin 33.7 pg (28.0-34.0); Mean Corpuscular Volume 98.1 fl (80-94); Mean Platelet Volume 8.9 fL (7.4-10.4); Monocytes # 0.5 10^3/uL (0.2-0.9); Monocytes % 5.5 %; Neutrophils # 5.21 10^3/uL (1.8-7.7); Neutrophils % 57.9 %; Nucleated Red Blood Cells % 0 %; Platelet Count 273 10^3/cmm (130-400); Red Blood Count 4.81 10^6/uL (4.1-5.3); Red Cell Distribution Width 12.7 % (12.1-15.1)
[2022-05-27 22:56] LABS: Add Urine Microscopic? NO; Charge for UA Resulting for Rev
[2022-05-27 22:57] LABS: Protein Urine Neg (Negative); Urine Appearance Clear (CLEAR); Urine Color Yellow (Yellow); pH Urine 5 (5-7)
[2022-05-27 22:58] LABS: Bilirubin Urine Neg (Negative); Blood Urine Neg (Negative); Glucose Urine UA Norm (Normal); Ketones Urine Negative (Negative); Leukocyte Esterase Urine Negative (Negative); Nitrate Urine Negative (Negative); Urobilinogen Urine Norm (Negative)
[2022-05-27 23:31] VITALS: BP 137/87; PULSE 81; RESP 17; O2SAT 99
== END 2022-05-27 23:33 | disposition home or self-care (01) ==
PROVIDERS: Emergency Provider Emergency Medicine
DX: K40.90 Unilateral inguinal hernia, without obstruction or gangrene, not specified as recurrent (principal); F17.210 Nicotine dependence, cigarettes, uncomplicated
CPT/HCPCS: 36415; 80053; 81003; 85025; 85610; 99283

== ENCOUNTER → 2022-07-02 13:35 | Outpatient (BNVA) | payer MEDICAID, SELFPAY | PROVIDERS: Visit Provider Surgery | DX: K40.90 Unilateral inguinal hernia, without obstruction or gangrene, not specified as recurrent (principal) | CPT/HCPCS: 99203 ==

== ENCOUNTER 2022-07-24 10:44 | Day surgery (SDC) | payer MEDICAID, SELFPAY ==
[2022-07-24] VITALS (7 sets, daily range): BP systolic 139–155; BP diastolic 81–99; PULSE 68–93; RESP 16–20; TEMP 36.3–36.8; O2SAT 93–98
[2022-07-24] MEDS: sodium chloride 0.9% 1,000 ML 30 ML IV (11:50)
--- NOTE | 2022-07-24 11:58 | W.PM.OPSUD ---
Surgery/Procedure H&P Update DATE OF PROCEDURE: July 24, 2022 DATE H&P PERFORMED: 07/02/22 PREOP DIAGNOSIS: Right inguinal hernia PLANNED PROCEDURE: Operation Date: 07/24/22 13:00 Pro[place] Procedures p 93766 lap right inguinal hernia w/ mesh K40.90(Right) - Favian Diaz DO
--- NOTE | 2022-07-24 12:38 | ANES.PREANE2 ---
Pre-Anesthetic Assessment Height/Weight: Height 1.78 m Weight 68.039 kg Temp Pulse Resp BP Pulse Ox O2 Del Method 97.6 F 70 18 146/99 98 07/24/22 11:39 07/24/22 11:39 07/24/22 11:39 07/24/22 11:39 07/24/22 11:39 07/24/22 11:39 Preop Diagnosis: Right inguinal hernia Operation Date: 07/24/22 13:00 Proposed Procedures p 29551 lap right inguinal hernia w/ mesh K40.90(Right) - Favian Diaz DO Familial anesthetic complications: none Was Beta Levi taken within 24 hours: N/A Was Clonidine taken within 24 hours: N/A Last intake: Intake Last Liquid Date 07/23/22 Last Liquid Time 22:00 Last Solid Date 07/23/22 Last Solid Time 23:00 Social Alcohol and Tobacco Airway Submandibular: within normal limits Cervical ROM: within normal limits Mallampati: Class II Dentition: chipped and loose Comments: Comments: very poor dentition multiple chipped and missing teeth dental risk associated with anesthesia discussed with patient. Pulmonary Chronic Obstructive Pulmonary Disease CV/HEM Hypertension (undiagnosed - patient states he gets COOPER and knows he probably has HTN elevated today 146/99) None reported Hepatic None reported GI None reported Metabolic None reported Musc/skel None reported Neuropsych Anxiety and Depression Anesthetic Plan ASA status: 3 Anesthesia: General Medications/Allergies Home Medications Medication Instructions Recorded Confirmed Last Taken Type fluticasone 250 mcg-salmeterol 50 1 inh inhalation Q12H 05/23/22 07/24/22 07/23/22 History mcg/dose blistr powdr for inhalation (Advair Diskus) ibuprofen 200 mg tablet (Advil) 200 mg PO Q6H PRN Pain 07/24/22 07/24/22 07/23/22 History Allergies Allergy/AdvReac Type Severity Reaction Status Date / Time No Known Allergies Allergy Verified 07/24/22 11:42 Current Medications Generic Name Dose Route Start Last Admin Trade Name Freq PRN Reason Stop Dose Admin Sodium Chloride 1,000 mls @ 30 mls/hr 07/24/22 11:30 07/24/22 11:50 Sodium Chloride 0.9% IV 07/25/22 11:29 30 mls/hr .Q24H ERIK Administration PFSH Anesthesia Medical History (Updated 07/02/22 @ 14:07 by Favian Diaz DO) Alcohol use Groin pain Right inguinal hernia Social History Smoking and tobacco status: current every day smoker Alcohol intake: current Alcohol intake frequency: 3 or more drinks per day Alcohol type: hard liquor Desire information about alcohol rehabilitation?: No (No interest in stopping drinking) Data Anesthesia Cardiac Studies: No Data to Display
[2022-07-24] MEDS: ceFAZolin 2,000 MG in sodium chloride 0.9% (plus) 50 ML 100 MG IV (15:01)
--- NOTE | 2022-07-24 15:41 | PM.OP ---
Operative Report Date of procedure: July 24, 2022 Pre-op diagnosis: Preop Diagnosis Right inguinal hernia Post-op diagnosis: other (Bilateral indirect inguinal hernias) Procedure done: Laparoscopic repair of bilateral inguinal hernias with mesh Implants: Left and right extra-large 3D max Bard meshes Specimens removed/disposition: None Surgeon: Dr. Favian Diaz DO Anesthesia: General Estimated blood loss (mL): 5 Complications: None apparent Brief History: This is a very pleasant 56-year-old gentleman who came in with a painful right inguinal hernia. Laparoscopic repair of a right inguinal hernia with mesh with possibility of doing a bilateral was indicated. The risks and benefits were explained and documented. Procedure: Patient was wheeled into the operative room and placed on the OR table in a supine position. Abdomen was inspected prepped and draped in usual sterile fashion. Time-out was performed and all present were in agreement. A 15 blade scalpel was used to make 1.2 centimeter incision infraumbilically. Combination of sharp and blunt dissection was performed down to the anterior rectus sheath which was opened sharply. The dissecting balloon was then inserted into the space of Retzius and blown up. We put the camera into the port and identified that we were in the correct space. I then placed 2 5 millimeter trocars suprapubically in the midline. I then used endokitners to bluntly dissect in the space of Retzius out laterally. An indirect inguinal hernia was identified on the right. Blunt dissection was performed to dissect down the hernia sac until the vas deferens dove medially. AN extralarge right inguinal mesh was then placed into the space of Retzius. The mesh was unrolled and tacked once medially at the pubic bone. The mesh laid out nicely over the spermatic cord. An indirect inguinal hernia was identified on the left. Blunt dissection was performed to dissect down the hernia sac until the vas deferens dove medially. An extralarge left inguinal mesh was then placed into the space of Retzius. The mesh was unrolled and tacked once medially at the pubic bone. The mesh laid out nicely over the spermatic cord. I watched the hernia sacs remain in place as insufflation was removed. Incisions were closed with 4 O Vicryl in a subcuticular interrupted fashion. Skin glue was applied. Patient tolerated the procedure well.
[2022-07-24] MEDS: HYDROcodone-acetaminophen 7.5-325 mg Tablet 1 TAB PO (16:29)
[2022-07-24] MEDS: HYDROcodone-acetaminophen 10-325 mg Tablet 1 TAB PO (17:38)
--- NOTE | 2022-07-24 17:40 | PC.NURSE ---
pt waiting for his medi-ride to arrive. running 40 minutes later than quoted. Alma given to pt to take with him per Dr Diaz's order. pt unable to get to pharmacy before they closed and does not have a vehicle or transportation to get to another pharmacy [facility].
== END 2022-07-24 18:21 | disposition home or self-care (01) ==
PROVIDERS: Visit Provider Surgery
PROC: (CPT 49650; principal; 2022-07-24 13:00)
DX: K40.20 Bilateral inguinal hernia, without obstruction or gangrene, not specified as recurrent (principal); J44.9 Chronic obstructive pulmonary disease, unspecified; F17.210 Nicotine dependence, cigarettes, uncomplicated
CPT/HCPCS: 49650; 51702; C1781; J0690; J1100; J1170; J2250; J2405; J2704; J3010; J3490; J7030

== ENCOUNTER 2022-08-17 19:16 | Emergency (ER) | payer MEDICAID, SELFPAY ==
[2022-08-17 19:31] VITALS: PULSE 86; RESP 18; TEMP 36.6; O2SAT 96; BMI 21.5
--- NOTE | 2022-08-17 19:33 | ED_ITS ---
HPI - Abdominal Pain General: Chief Complaint: Abdominal Pain Stated Complaint: etoh Time Seen by Provider: 08/17/22 19:23 Source: patient Mode of arrival: EMS Limitations: no limitations History of Present Illness: See nursing assessment. Patient with complaints of right lower quadrant and right inguinal pain today. He states he had right inguinal hernia repair by laparoscopy 3 weeks ago. Denies any other previous abdominal surgeries. States he is had about 12 beers today. Denies any other medical problems. He is an alcoholic. Smokes cigarettes as well. Denies allergies to medications. Denies any vomiting or diarrhea. He has had some nausea. Denies any change in his stool or blood in the stool or melena. Denies any dysuria or hematuria. He smells of alcohol. Associated Symptoms: Reports nausea; Denies chills, diarrhea, dysuria, fever(s), hematochezia, hematuria, melena and vomiting Review of Systems Const: Denies: fever(s) or chills Eyes: Denies: change in vision ENMT: Denies: throat pain Card: Denies: chest pain or palpitations Resp: Denies: dyspnea or wheezing GI: Reports: abdominal pain and nausea; Denies: vomiting, diarrhea, hematochezia or melena : Denies: flank pain, difficulty urinating, dysuria or hematuria Musc: Denies: neck pain or back pain Skin/Breast: Denies: rash or pruritus Neuro: Denies: headache(s) or numbness in extremities Psych: Denies: anxiety Cecilio/Lymph: Denies: enlarged lymph nodes [facility] ED PFSH: Medical History Alcohol use Groin pain Right inguinal hernia Social History Smoking and tobacco status: current every day smoker Alcohol intake: current Alcohol intake frequency: 3 or more drinks per day Alcohol type: hard liquor Desire information about alcohol rehabilitation?: No (No interest in stopping drinking) Supplemental [facility] Information: Laparoscopic inguinal hernia repair Physical Exam Const: COMMON NORMALS: no acute distress, patient oriented x3, no limitations and well nourished GENERAL APPEARANCE: cooperative OTHER: Alcohol intoxication; alcohol on his breath. HENMT: COMMON NORMALS: normocephalic and atraumatic HEAD & SCALP: normocephalic and atraumatic FACE & SINUS: normal facial exam Eye: COMMON NORMALS: EOMs intact bilaterally Neck/C-Spine: COMMON NORMALS: full ROM, no lymphadenopathy, supple and no meningeal signs GENERAL: Yes normal visual inspection Lymph: LYMPHATIC: no lymphadenopathy noted Chest: COMMONS NORMALS: normal inspection of the chest and normal palpation of entire chest wall CHEST: No Ecchymosis present and No rash Resp: COMMON NORMALS: normal respiratory effort, No retractions and clear to auscultation bilaterally EFFORT & INSPECTION: No respiratory distress AUSCULTATION: clear to auscultation bilaterally Cardio: COMMON NORMALS: regular rate, regular rhythm and Peripheral pulses 2+ throughout JUGULAR VENOUS DISTENTION: no JVD RATE: regular rate RHYTHM: regular rhythm PERIPHERAL PULSES: Peripheral pulses 2+ throughout GI: OTHER: Normoactive bowel sounds. Patient has mild to moderate pain in the right lower quadrant and right inguinal area. No hernia palpated. Patient is well-healed laparoscopic incisions to his abdominal wall. There are no incisions or lesions to his right groin. : COMMON NORMALS: Yes no CVA tenderness BLADDER/KIDNEY EXAM: Yes no CVA tenderness Back/Pelvis: COMMON NORMALS: no CVA tenderness Extremity: COMMON NORMALS: normal to inspection, full ROM and capillary refill normal Neuro: COMMON NORMALS: patient oriented x3, CN's II-XII intact bilaterally, no focal motor deficits and no sensory deficits noted MENINGEAL SIGNS: Yes no meningeal signs Psych: COMMON NORMALS: mental status grossly normal and Normal thought process present THOUGHT PROCESS: Normal thought process present OTHER: Denies suicidal or homicidal ideations Skin: COMMON NORMALS: no rashes or lesions noted and no wounds GENERAL SKIN EXAM: no rashes or lesions noted Course Vital Signs: Vital signs: Vital Signs Temperature 97.9 F 08/17/22 19:31 Pulse Rate 86 08/17/22 19:31 Respiratory Rate 18 08/17/22 19:31 Pulse Oximetry 96 08/17/22 19:31 Oxygen Delivery Me thod 08/17/22 19:31 MDM - Abdominal Pain Medical Decision Making Complication from right inguinal hernia repair. Postop pain. Alcohol intoxic ation Patient denies being suicidal. 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 He has been doing heavy lifting since his surgery. I do not believe patient has any infection. Lab Data 08/17/22 20:39 08/17/22 20:39 Labs/Radiology: Radiology Impressions Abdomen X-Ray 08/17/22 19:32 IMPRESSION: 1. No evidence for bowel obstruction or perforation. 2. Incidental/nonacute findings are listed in the report. Abdomen/Pelvis CT 08/17/22 21:15 IMPRESSION: 1. Fluid within the small bowel and colon without evidence of bowel wall thickening. This may reflect viral gastroenteritis in the appropriate clinical situation. 2. Patient has had a previous right inguinal hernia repair. There is mild swelling at the surgical site that could be due to residual postsurgical change versus early infection. No surrounding inflammation however. Recommend followup chest imaging to insure resolution of these findings. 3. Stable diffuse, moderate wall thickening of the bladder. In the correct clinical setting, this may suggest cystitis. Recommend correlation with laboratory findings. Alternatively, this may be secondary to chronic outlet obstruction. 4. Incidental/nonacute findings are listed in the report. Laboratory Results WBC 11.6 10^3/uL (4.0-10.0) H 08/17/22 20:39 RBC 4.99 10^6/uL (4.1-5.3) 08/17/22 20:39 Hgb 16.1 g/dL (11.7-16.6) 08/17/22 20:39 Hct 48.0 % (42.0-52.0) 08/17/22 20:39 MCV 96.2 fl (80-94) H 08/17/22 20:39 MCH 32.3 pg (28.0-34.0) 08/17/22 20:39 MCHC 33.5 g/dL (30.0-36.0) 08/17/22 20:39 RDW 12.6 % (12.1-15.1) 08/17/22 20:39 Plt Count 217 10^3/cmm (130-400) 08/17/22 20:39 MPV 9.3 fL (7.4-10.4) 08/17/22 20:39 Neut % (Auto) 63.5 % 08/17/22 20:39 Lymph % (Auto) 25.8 % 08/17/22 20:39 Ellis % (Auto) 5.3 % 08/17/22 20:39 Eos % (Auto) 4.2 % 08/17/22 20:39 Baso % (Auto) 0.9 % 08/17/22 20:39 Neut # (Auto) 7.36 10^3/uL (1.8-7.7) 08/17/22 20:39 Lymph # (Auto) 3.0 10^3/uL (0.8-4.8) 08/17/22 20:39 Ellis # (Auto) 0.6 10^3/uL (0.2-0.9) 08/17/22 20:39 Eos # (Auto) 0.5 10^3/uL (0.0-0.8) 08/17/22 20:39 Baso # (Auto) 0.1 10^3/uL (0.0-0.1) 08/17/22 20:39 Nucleated RBC % (auto) 0 % 08/17/22 20:39 Nucleated RBCs # 0.0 /100WBC 08/17/22 20:39 Sodium 132 mmol/L (136-145) L 08/17/22 20:39 Potassium 3.9 mmol/L (3.5-5.1) 08/17/22 20:39 Chloride 96 mmol/L (98-107) L 08/17/22 20:39 Carbon Dioxide 26 mmol/L (22-29) 08/17/22 20:39 Anion Gap 13.9 (5-19) 08/17/22 20:39 BUN 4 mg/dL (6-20) L 08/17/22 20:39 Creatinine 0.4 mg/dL (0.7-1.2) L 08/17/22 20:39 GFR Calculation 222.5 mL/min (90-130) H 08/17/22 20:39 Glucose 81 mg/dL (65-115) 08/17/22 20:39 Calculated Osmolality 270 mOsm/kg (285-295) L 08/17/22 20:39 Calcium 9.3 mg/dL (8.5-10.5) 08/17/22 20:39 Urine Color Light yellow (Yellow) 08/17/22 21:10 Urine Appearance Clear (CLEAR) 08/17/22 21:10 Urine pH 6 (5-7) 08/17/22 21:10 Ur Specific [place] 1.005 (1.005-1.030) 08/17/22 21:10 Urine Protein Neg (Negative) 08/17/22 21:10 Urine Glucose (UA) Norm (Normal) 08/17/22 21:10 Urine Ketones Negative (Negative) 08/17/22 21:10 Urine Blood Neg (Negative) 08/17/22 21:10 Urine Nitrate Negative (Negative) 08/17/22 21:10 Urine Bilirubin Neg (Negative) 08/17/22 21:10 Urine Urobilinogen Neg mg/dL (Negative) 08/17/22 21:10 Ur Leukocyte Esterase Negative (Negative) 08/17/22 21:10 Urine RBC None /hpf (0-2) 08/17/22 21:10 Urine WBC None /hpf (0-5) 08/17/22 21:10 Ur Squamous Epith Cells 0-4 /hpf (0-5) H 08/17/22 21:10 Amorphous Sediment Not Reportable 08/17/22 21:10 Urine Bacteria None /hpf (NONE) 08/17/22 21:10 Urine Mucus Trace /hpf 08/17/22 21:10 Ethyl Alcohol 257 mg/dL (0-10) H 08/17/22 20:39 Imaging Data KUB: My impression: Nothing acute. No obstruction. Radiologist's impression: PROCEDURE INFORMATION: Exam: XR Abdomen Exam date and time: 08/17/2022 7:53 PM Age: 56 years old Clinical indication: Abdominal pain; Localized; Right lower quadrant (rlq); Additional info: Rlq abd pain TECHNIQUE: Imaging protocol: Radiologic exam of the abdomen. Views: Frontal supine view of the abdomen. 1 View. COMPARISON: CT abdomen pelvis w con* [id number] 05/05/2022 5:02 PM FINDINGS: Lungs: Visualized lungs are clear. Gastrointestinal tract: No evidence for bowel obstruction or perforation. Intraperitoneal space: No free intraperitoneal air. Organs: No organomegaly. Vasculature: Multiple calcifications in the pelvis most likely representing calcified phleboliths. Bones/joints: Degenerative changes in the spine and hips. Surgical anchors in the right pelvis at the right pubic bone. XR/XR abdomen 1V* [id number] IMPRESSION: 1. No evidence for bowel obstruction or perforation. 2. Incidental/nonacute findings are listed in the report. ? Dictated By: Yoon Garcia MD Signed By: Yoon Garcia MD Signed Date/Time: 08/17/222037 CT Abd/Pel: Radiologist's impression: PROCEDURE INFORMATION: Exam: CT Abdomen And Pelvis With Contrast Exam date and time: 08/17/2022 9:36 PM Age: 56 years old Clinical indication: Abdominal pain; Localized; Right lower quadrant (rlq); Prior surgery; Surgery date: <1 month; Surgery type: Laproscopic inguinal hernia repair 07/24/22; Additional info: Rlq abd and R inguinal pain, h/o laparoscopic R inguinal hernia repair in the past month TECHNIQUE: Imaging protocol: Computed tomography of the abdomen and pelvis with contrast. Radiation optimization: All CT scans at this facility use at least one of these dose optimization techniques: automated exposure control; mA and/or kV adjustment per patient size (includes targeted exams where dose is matched to clinical indication); or iterative reconstruction. Contrast material: OMNI 350; Contrast volume: 100 ml; Contrast route: INTRAVENOUS (IV);? COMPARISON: CT abdomen pelvis w con* [id number] 05/05/2022 5:02 PM RADIATION DOSE METRICS: Total DLP (mGy-cm): 706.61 FINDINGS: Lungs: Moderate centrilobular emphysematous changes in the lower lungs. Visualized lungs are clear. Pleural spaces: No pleural effusion. Heart: Visualized portions of the heart are unremarkable. Liver: The liver is unremarkable. Gallbladder and bile ducts: The gallbladder is unremarkable. No biliary ductal dilatation. Pancreas: The pancreas is unremarkable. No pancreatic ductal dilatation. Spleen: The spleen is unremarkable. Adrenal glands: Stable nodularity of the right and left adrenal glands. Kidneys and ureters: The right and left kidneys are unremarkable. The right and left ureters are unremarkable. Stomach and bowel: Fluid within the small bowel and colon without evidence of bowel wall thickening. Appendix: Appendix not definitely visualized. No inflammatory changes in the pericecal region however. Intraperitoneal space: No free intraperitoneal air. No ascites. No loculated fluid collections to suggest an abscess. Vasculature: Stable mild atherosclerotic calcifications in the visualized arteries. No evidence for aortic aneurysm or aortic dissection. Hepatic veins, portal veins, splenic vein, and SMV are patent. Incidental note of a retroaortic left renal vein. Lymph nodes: No lymphadenopathy. Urinary bladder: Stable diffuse, moderate wall thickening of the bladder. Reproductive: Stable mild enlargement of the prostate gland. Stable nonspecific parenchymal calcifications in the prostate gland. Visualized right and left testes are unremarkable. Bones/joints: Degenerative changes in the spine, sacroiliac joints, and hips. Mild spinal canal stenosis at T12-L1 and L4-L5. Multilevel foraminal stenosis of varying severity in the visualized spine. Soft tissues: No acute abnormality in the extra-abdominal soft tissues. Patient has had a previous right inguinal hernia repair. There is mild swelling at the surgical site that could be due to residual postsurgical change versus early infection. No surrounding inflammation however. CT/CT abdomen pelvis w con* [id number] IMPRESSION: 1. Fluid within the small bowel and colon without evidence of bowel wall thickening. This may reflect viral gastroenteritis in the appropriate clinical situation. 2. Patient has had a previous right inguinal hernia repair. There is mild swelling at the surgical site that could be due to residual postsurgical change versus early infection. No surrounding inflammation however. Recommend followup chest imaging to insure resolution of these findings. 3. Stable diffuse, moderate wall thickening of the bladder. In the correct clinical setting, this may suggest cystitis. Recommend correlation with laboratory findings. Alternatively, this may be secondary to chronic outlet obstruction. 4. Incidental/nonacute findings are listed in the report. ? Dictated By: Yoon Garcia MD Signed By: Yoon Garcia MD Signed Date/Time: 08/17/222209 Discharge Plan Discharge Patient Disposition: Home Clinical Impression: Abdominal pain Qualifiers: Abdominal location: right lower quadrant Qualified Code(s): R10.31 - Right lower quadrant pain Acute alcohol intoxication Qualifiers: Complication of substance-induced condition: uncomplicated Qualified Code(s): F10.920 - Alcohol use, unspecified with intoxication, uncomplicated Condition: Stable Prescriptions: New naproxen 375 mg tablet 375 mg PO Q12H PRN (Reason: pain) Qty: 10 1RF No Action hydrocodone-acetaminophen 7.5-325 mg tablet 1 tab PO Q6H PRN (Reason: pain) 5 Days Qty: 20 0RF fluticasone propion-salmeterol [Advair Diskus] 250-50 mcg/dose Blister With Device 1 inh INHALATION Q12H Advil 200 mg Tablet 200 mg PO Q6H PRN (Reason: Pain) Hold Instructions: Resume on 12/24/22. DOK 100 mg capsule 100 mg PO BID Qty: 20 0RF hydrocodone-acetaminophen 7.5-325 mg tablet 1 tab PO Q6H PRN (Reason: pain) Qty: 20 0RF Discharge Orders: Discharge ED (Routine); Ordered 08/17/22 Ordered By: Danny Bullock Discharge Diet: Advance as tolerated Discharge Activity: Limit activity as instructed Patient Instructions: Alcohol Intoxication (ED), Abuse of Alcohol (ED), Abdominal Pain (ED), Opioid Safety, Pain Management Activity Restrictions/Additional Instructions: Rest. Avoid lifting more than 10 pounds for the next 5 or 6 days. May take ibuprofen or naproxen as needed for pain but do not take both together. Avoid alcohol use. Stand Alone Forms: Work/School Release Coding Level of Care Code ED Telephone Information Clerk for Elisabeth Morin History Comprehensive Exam Comprehensive Medical Decision Making Moderate Complexity
[2022-08-17 20:44] LABS: Basophils # 0.1 10^3/uL (0.0-0.1); Basophils % 0.9 %; Eosinophils # 0.5 10^3/uL (0.0-0.8); Eosinophils % 4.2 %; Hemoglobin 16.1 g/dL (11.7-16.6); Lymphocytes % 25.8 %; Mean Corpuscular HGB Conc 33.5 g/dL (30.0-36.0); Mean Corpuscular Hemoglobin 32.3 pg (28.0-34.0); Mean Corpuscular Volume 96.2 fl (80-94); Mean Platelet Volume 9.3 fL (7.4-10.4); Monocytes # 0.6 10^3/uL (0.2-0.9); Monocytes % 5.3 %; Neutrophils # 7.36 10^3/uL (1.8-7.7); Neutrophils % 63.5 %; Nucleated Red Blood Cells % 0 %; Platelet Count 217 10^3/cmm (130-400); Red Blood Count 4.99 10^6/uL (4.1-5.3); Red Cell Distribution Width 12.6 % (12.1-15.1); White Blood Count 11.6 10^3/uL (4.0-10.0)
[2022-08-17] MEDS: ondansetron 2 mg/ML SDV 2 mL 4 MG IVP (20:47)
[2022-08-17 21:01] LABS: Alcohol Level 257 mg/dL (0-10); Anion Gap 13.9 (5-19); Blood Urea Nitrogen 4 mg/dL (6-20); Calcium 9.3 mg/dL (8.5-10.5); Carbon Dioxide 26 mmol/L (22-29); Chloride 96 mmol/L (98-107); Glomerular Filtration Rate 222.5 mL/min (90-130); Glucose 81 mg/dL (65-115); Osmolality Calculated 270 mOsm/kg (285-295); Potassium 3.9 mmol/L (3.5-5.1); Sodium 132 mmol/L (136-145)
--- NOTE | 2022-08-17 21:15 | CTR_ITS ---
PROCEDURE INFORMATION: Exam: CT Abdomen And Pelvis With Contrast Exam date and time: 08/17/2022 9:36 PM Age: 56 years old Clinical indication: Abdominal pain; Localized; Right lower quadrant (rlq); Prior surgery; Surgery date: <1 month; Surgery type: Laproscopic inguinal hernia repair 07/24/22; Additional info: Rlq abd and R inguinal pain, h/o laparoscopic R inguinal hernia repair in the past month TECHNIQUE: Imaging protocol: Computed tomography of the abdomen and pelvis with contrast. Radiation optimization: All CT scans at this facility use at least one of these dose optimization techniques: automated exposure control; mA and/or kV adjustment per patient size (includes targeted exams where dose is matched to clinical indication); or iterative reconstruction. Contrast material: OMNI 350; Contrast volume: 100 ml; Contrast route: INTRAVENOUS (IV); COMPARISON: CT abdomen pelvis w con* [id number] 05/05/2022 5:02 PM RADIATION DOSE METRICS: Total DLP (mGy-cm): 706.61 FINDINGS: Lungs: Moderate centrilobular emphysematous changes in the lower lungs. Visualized lungs are clear. Pleural spaces: No pleural effusion. Heart: Visualized portions of the heart are unremarkable. Liver: The liver is unremarkable. Gallbladder and bile ducts: The gallbladder is unremarkable. No biliary ductal dilatation. Pancreas: The pancreas is unremarkable. No pancreatic ductal dilatation. Spleen: The spleen is unremarkable. Adrenal glands: Stable nodularity of the right and left adrenal glands. Kidneys and ureters: The right and left kidneys are unremarkable. The right and left ureters are unremarkable. Stomach and bowel: Fluid within the small bowel and colon without evidence of bowel wall thickening. Appendix: Appendix not definitely visualized. No inflammatory changes in the pericecal region however. Intraperitoneal space: No free intraperitoneal air. No ascites. No loculated fluid collections to suggest an abscess. Vasculature: Stable mild atherosclerotic calcifications in the visualized arteries. No evidence for aortic aneurysm or aortic dissection. Hepatic veins, portal veins, splenic vein, and SMV are patent. Incidental note of a retroaortic left renal vein. Lymph nodes: No lymphadenopathy. Urinary bladder: Stable diffuse, moderate wall thickening of the bladder. Reproductive: Stable mild enlargement of the prostate gland. Stable nonspecific parenchymal calcifications in the prostate gland. Visualized right and left testes are unremarkable. Bones/joints: Degenerative changes in the spine, sacroiliac joints, and hips. Mild spinal canal stenosis at T12-L1 and L4-L5. Multilevel foraminal stenosis of varying severity in the visualized spine. Soft tissues: No acute abnormality in the extra-abdominal soft tissues. Patient has had a previous right inguinal hernia repair. There is mild swelling at the surgical site that could be due to residual postsurgical change versus early infection. No surrounding inflammation however. CT/CT abdomen pelvis w con* [id number] IMPRESSION: 1. Fluid within the small bowel and colon without evidence of bowel wall thickening. This may reflect viral gastroenteritis in the appropriate clinical situation. 2. Patient has had a previous right inguinal hernia repair. There is mild swelling at the surgical site that could be due to residual postsurgical change versus early infection. No surrounding inflammation however. Recommend followup chest imaging to insure resolution of these findings. 3. Stable diffuse, moderate wall thickening of the bladder. In the correct clinical setting, this may suggest cystitis. Recommend correlation with laboratory findings. Alternatively, this may be secondary to chronic outlet obstruction. 4. Incidental/nonacute findings are listed in the report.
[2022-08-17 21:18] LABS: Bilirubin Urine Neg (Negative); Blood Urine Neg (Negative); Glucose Urine UA Norm (Normal); Ketones Urine Negative (Negative); Leukocyte Esterase Urine Negative (Negative); Nitrate Urine Negative (Negative); Protein Urine Neg (Negative); Specific Gravity, Urine 1.005 (1.005-1.030); Urine Appearance Clear (CLEAR); Urine Color Light yellow (Yellow); Urobilinogen Urine Neg (Negative); pH Urine 6 (5-7)
[2022-08-17] MEDS: iohexol 350 mg/mL 500 mL Btl (per mL) IV (21:25)
[2022-08-17 21:28] LABS: Add Urine Culture? No; Mucus Urine TRACE /hpf; Squamous Epithelial Cell Urine 0-4 /hpf (0-5)
== END 2022-08-17 22:38 | disposition home or self-care (01) ==
PROVIDERS: Emergency Provider Family Medicine
DX: R10.31 Right lower quadrant pain (principal); F10.920 Alcohol use, unspecified with intoxication, uncomplicated; F17.210 Nicotine dependence, cigarettes, uncomplicated
CPT/HCPCS: 74018; 74177; 80048; 80307; 81001; 85025; 96374; 99285; J2405; Q9967

== ENCOUNTER → 2022-08-21 13:04 | Outpatient (BNVA) | payer MEDICAID, SELFPAY | PROVIDERS: Visit Provider Surgery | DX: Z98.890 Other specified postprocedural states (principal); Z87.19 Personal history of other diseases of the digestive system | CPT/HCPCS: 99024 ==

== ENCOUNTER 2024-06-13 20:37 | Inpatient (IN) | payer MEDICAID, SELFPAY ==
[2024-06-13 20:38] VITALS: BMI 24.3
[2024-06-13 20:43] VITALS: BP 117/75; PULSE 102; RESP 17; TEMP 36.4; O2SAT 96
--- NOTE | 2024-06-13 21:30 | W.ED.PSYCHS ---
HPI - Psych General: Chief Complaint: ER Hold Stated Complaint: MHE Time Seen by Provider: 06/13/24 20:49 History of Present Illness: This patient is a 58-year-old white male who presents to the emergency department stating that he has been extremely stressed out. He is hallucinating. He is talking to a person that is not there. Patient states he has a history of schizophrenia and he has been out of his medications for some time. He states he has been hitchhiking from [facility] up to [place]. Patient states he is suicidal. He states he was close to stepping out in front of a train. Associated symptoms: Reports visual hallucinations, delusions and suicidal ideation Related Data Home Medications Medication Instructions Recorded Confirmed fluticasone 250 mcg-salmeterol 50 1 inh inhalation Q12H 05/23/22 06/14/24 mcg/dose blistr powdr for inhalation (Advair Diskus) ibuprofen 200 mg tablet (Advil) 200 mg PO Q6H PRN Pain 07/24/22 06/14/24 nicotine 14 mg/24 hr daily 14 mg topical Q24H 06/14/24 06/14/24 transdermal patch Previous Rx's Medication Instructions Recorded naproxen 375 mg tablet 375 mg PO Q12H PRN pain #10 tabs 08/17/22 citalopram 20 mg tablet 20 mg PO DAILY 30 days #30 tabs 06/19/24 doxepin 10 mg capsule 10 mg PO DAILY PRN insomnia 30 06/19/24 days #30 caps hydroxyzine pamoate 25 mg capsule 50 mg (2 x 25 mg) PO Q6H PRN 06/19/24 Anxiety 30 days #120 caps naltrexone 50 mg tablet 50 mg PO DAILY 30 days #30 tabs 06/19/24 thiamine mononitrate (vit B1) 100 100 mg PO DAILY 30 days #30 tabs 06/19/24 mg tablet (Vitamin B-1 (mononitrate)) Allergies Allergy/AdvReac Type Severity Reaction Status Date / Time No Known Allergies Allergy Verified 08/21/22 13:07 Review of Systems General: Reports: 10 or more systems reviewed and unremarkable except in HPI and below Psych: Reports: paranoia, visual hallucinations and suicidal ideation [facility] PFSH: Medical History Right inguinal hernia Groin pain Alcohol use Surgical History (Updated 08/21/22 @ 13:17 by Favian Diaz DO) History of bilateral inguinal herniorrhaphies Family History (Updated 06/14/24 @ 15:31 by Mariya Burt RN) Father Alcohol abuse Social History Smoking and tobacco/nicotine status: current every day tobacco/nicotine user Alcohol intake: current Alcohol intake frequency: 3 or more drinks per day Alcohol type: hard liquor Physical Exam Const: COMMON NORMALS: patient oriented x3 and no limitations GENERAL APPEARANCE: cooperative HENMT: COMMON NORMALS: normocephalic, atraumatic, Normal nasal mucous membranes and turbinates present, moist oral mucous membranes and oropharynx normal HEAD & SCALP: normal to inspection, normocephalic and atraumatic FACE & SINUS: normal facial exam NOSE: Normal nasal mucous membranes and turbinates present Eye: COMMON NORMALS: Equal, round and reactive pupils present, EOMs intact bilaterally and conjunctivae normal GENERAL EYE: appearance normal, both eyes and all related structures CONJUNCTIVA: Yes conjunctivae normal PUPIL: Yes Equal, round and reactive pupils present Neck/C-Spine: COMMON NORMALS: supple and no JVD Chest: COMMONS NORMALS: normal inspection of the chest Resp: COMMON NORMALS: normal respiratory effort and clear to auscultation bilaterally AUSCULTATION: clear to auscultation bilaterally Cardio: COMMON NORMALS: no JVD, regular rate, regular rhythm, No gallops present (Cardio), No murmurs present (Cardio) and No rub (Cardio) RATE: regular rate RHYTHM: regular rhythm GI: COMMON NORMALS: Normal to inspection, nondistended, normoactive bowel sounds present, Soft to palpation and non-tender AUSCULTATION: Yes normoactive bowel sounds PALPATION: Yes Soft to palpation : COMMON NORMALS: Yes no CVA tenderness BLADDER/KIDNEY EXAM: Yes no CVA tenderness Back/Pelvis: COMMON NORMALS: no CVA tenderness and thoracic and lumbar spine normal to inspection Extremity: COMMON NORMALS: normal to inspection Neuro: COMMON NORMALS: patient oriented x3 and CN's II-XII intact bilaterally Psych: COMMON NORMALS: mental status grossly normal, Normal thought process present and cooperative APPEARANCE: Yes unkempt and Yes disheveled ACTIVITY/MOTOR BEHAVIOR: Yes psychomotor agitation MOOD & AFFECT: Yes depressed mood THOUGHT PROCESS: Normal thought process present THOUGHT CONTENT: Yes Suicidality present, Yes delusions and Yes Hallucination(s) present ATTENTION/CONCENTRATION: Yes attention grossly intact MEMORY/COGNITION: Yes memory grossly intact INSIGHT: Limited insight present (Psych) JUDGEMENT: Limited judgement present (Psych) Skin: COMMON NORMALS: no rashes or lesions noted, turgor normal and no jaundice GENERAL SKIN EXAM: no rashes or lesions noted and turgor normal Course Vital Signs: Vital signs: Vital Signs Temperature 98.0 F 06/20/24 06:00 Pulse Rate 73 06/20/24 06:00 Respiratory Rate 17 06/20/24 06:00 Blood Pressure 164/89 06/20/24 06:00 Pulse Oximetry 97 06/20/24 06:00 Oxygen Delivery Me thod Room Air 06/19/24 21:13 MDM - Psych Medical Decision Making CBC, CMP and TSH normal. Talk screen was negative. Urine drug screen negative. Blood alcohol level was 212. Patient does have schizophrenia and has been off of his medications. He is suicidal. He is delusional. He needs to be admitted to a psychiatric facility. My affidavit is complete. Nursing staff will start searching for a psychiatric bed for the patient. The psychiatric unit here is full. Patient is stable. I will handoff this patient to Dr. High. Lab Data 06/13/24 21:24 06/13/24: Radiology Impressions Chest X-Ray 06/16/24 12:30 Impression: Atherosclerosis and hyperinflation. Laboratory Results WBC 10.26 10^3/uL (3.29-11.43) 06/13/24: RBC 4.98 10^6/uL (3.85-5.65) 06/13/24: Hgb 16.50 g/dL (11.27-16.99) 06/13/24: Hct 47.7 % (37-53) 06/13/24 21: MCV 95.8 fl (82-101) 06/13/24: MCH 33.1 pg (27-33) H 06/13/24: MCHC 34.6 g/dL (30-55) 06/13/24: RDW 12.5 % (12.1-15.1) 06/13/24 21: Plt Count 224 10^3/cmm (157-399) 06/13/24 21:24 MPV 8.7 fL (7.4-10.4) 06/13/24 21:24 Neut % (Auto) 61.2 % 06/13/24 21: Lymph % (Auto) 30.8 % 06/13/24 21:24 Woodson % (Auto) 3.9 % 06/13/24 21:24 Eos % (Auto) 3.0 % 06/13/24 21: Baso % (Auto) 0.8 % 06/13/24 21:24 Neut # (Auto) 6.28 10^3/uL (1.8-7.7) 06/13/24: Lymph # (Auto) 3.2 10^3/uL (0.8-4.8) 06/13/24: Woodson # (Auto) 0.4 10^3/uL (0.2-0.9) 06/13/24 21: Eos # (Auto) 0.3 10^3/uL (0.0-0.8) 06/13/24 21:24 Baso # (Auto) 0.1 10^3/uL (0.0-0.1) 06/13/24: Nucleated RBC % (auto) 0 % 06/13/24: Nucleated RBCs # 0.0 /100WBC 06/13/24 21:24 Sodium 142 mmol/L (136-145) 06/13/24 21:24 Potassium 3.8 mmol/L (3.5-5.1) 06/13/24 21:24 Chloride 105 mmol/L (98-107) 06/13/24 21:24 Carbon Dioxide 24 mmol/L (22-29) 06/13/24 21:24 Anion Gap 16.8 (5-19) 06/13/24 21:24 BUN 8 mg/dL (6-20) 06/13/24 21:24 Creatinine 0.7 mg/dL (0.7-1.2) 06/13/24 21:24 GFR Calculation 115.8 mL/min (90-130) 06/13/24 21:24 Glucose 75 mg/dL (65-115) 06/13/24 21:24 Calculated Osmolality 291 mOsm/kg (285-295) 06/13/24 21:24 Calcium 8.3 mg/dL (8.5-10.5) L 06/13/24 21:24 Total Bilirubin 0.3 mg/dL (0.15-1.2) 06/13/24 21:24 AST 28 U/L (0-40) 06/13/24 21:24 ALT 14 U/L (0-41) 06/13/24 21:24 Alkaline Phosphatase 80 U/L (40-130) 06/13/24 21:24 Total Protein 7.1 g/dL (6.6-8.7) 06/13/24 21:24 Albumin 4.2 g/dL (3.5-5.2) 06/13/24 21:24 Globulin 2.9 g/dL (1.3-4.6) 06/13/24 21:24 TSH 0.86 uIU/mL (0.27-4.20) 06/13/24 21:24 Salicylates < 0.3 mg/dL (3-10) L 06/13/24 21:24 Urine Opiates Screen Negative ng/mL (Negative) 06/13/24 21:10 Acetaminophen < 5.0 ug/mL (10-30) L 06/13/24 21:24 Ur Barbiturates Screen Negative ng/mL (Negative) 06/13/24 21:10 Ur Phencyclidine Scrn Negative ng/mL (Negative) 06/13/24 21:10 Ur Amphetamines Screen Negative ng/mL (Negative) 06/13/24 21:10 U Benzodiazepines Scrn Negative ng/mL (Negative) 06/13/24 21:10 Urine Cocaine Screen Negative ng/mL (Negative) 06/13/24 21:10 U Marijuana (THC) Screen Negative ng/mL (Negative) 06/13/24 21:10 Ethyl Alcohol 212 mg/dL (0-10) H 06/13/24 21:24 No radiology studies performed this visit Discharge Plan Discharge Patient Disposition: Xfer Psychiatric Hosp Clinical Impression: Chronic schizophrenia, Acute psychosis, Suicidal ideation Condition: Stable Discharge Orders: Discharge Order (Routine); Ordered 06/19/24 Ordered By: Huy Hameed Discharge Diet: Regular Discharge Activity: Resume usual activity Coding Level of Care Code ED [employer] for [employer] Patience
[2024-06-13 21:31] LABS: Basophils # 0.1 10^3/uL (0.0-0.1); Basophils % 0.8 %; Eosinophils # 0.3 10^3/uL (0.0-0.8); Hematocrit 47.7 % (37-53); Lymphocytes # 3.2 10^3/uL (0.8-4.8); Lymphocytes % 30.8 %; Mean Corpuscular HGB Conc 34.6 g/dL (30-55); Mean Corpuscular Hemoglobin 33.1 pg (27-33); Mean Corpuscular Volume 95.8 fl (82-101); Mean Platelet Volume 8.7 fL (7.4-10.4); Monocytes # 0.4 10^3/uL (0.2-0.9); Monocytes % 3.9 %; Neutrophils # 6.28 10^3/uL (1.8-7.7); Neutrophils % 61.2 %; Nucleated Red Blood Cells % 0 %; Platelet Count 224 10^3/cmm (157-399); Red Blood Count 4.98 10^6/uL (3.85-5.65); Red Cell Distribution Width 12.5 % (12.1-15.1); White Blood Count 10.26 10^3/uL (3.29-11.43)
[2024-06-13 21:33] LABS: Amphetamines Screen Urine Negative (Negative); Barbiturates Screen Urine Negative (Negative); Benzodiazepines Screen Urine Negative (Negative); Cocaine Screen Urine Negative (Negative); Opiate Screen Urine Negative (Negative); PCP Screen Urine Negative (Negative); THC Screen Urine Negative (Negative)
[2024-06-13 21:58] LABS: Alanine Aminotransferase 14 U/L (0-41); Albumin Level 4.2 g/dL (3.5-5.2); Alcohol Level 212 mg/dL (0-10); Alkaline Phosphatase 80 U/L (40-130); Anion Gap 16.8 (5-19); Aspartate Amino Transferase 28 U/L (0-40); Blood Urea Nitrogen 8 mg/dL (6-20); Calcium 8.3 mg/dL (8.5-10.5); Carbon Dioxide 24 mmol/L (22-29); Chloride 105 mmol/L (98-107); Creatinine Clr Calc Pharmacy 121.4453; Globulin 2.9 g/dL (1.3-4.6); Glomerular Filtration Rate 115.8 mL/min (90-130); Glucose 75 mg/dL (65-115); Osmolality Calculated 291 mOsm/kg (285-295); Potassium 3.8 mmol/L (3.5-5.1); Sodium 142 mmol/L (136-145); Thyroid Stimulating Hormone 0.86 uIU/mL (0.27-4.20); Total Bilirubin 0.3 mg/dL (0.15-1.2); Total Protein 7.1 g/dL (6.6-8.7)
[2024-06-13 22:03] LABS: Acetaminophen < 5.0 ug/mL (10-30); Salicylate < 0.3 mg/dL (3-10)
--- NOTE | 2024-06-14 05:22 | PC.NURSE ---
96 HH Pt served with copy of 96 Hour Hold by this RN and security. Pt smelled of alcohol when he coughed. Pt A&O, pt became animated when told he was being placed under a psych hold. I need to get out by Friday, I got stuff to do! I'm a vet! . Pt asking to speak to psychiatrist now, admission process explained to pt.
--- NOTE | 2024-06-14 07:01 | PC.NURSE ---
this RN took over pt care @ [id number] from ALBA Schwarz
[2024-06-14 07:43] VITALS: BP 154/88; PULSE 96; TEMP 36.5; O2SAT 96
--- NOTE | 2024-06-14 07:43 | PC.NURSE ---
pt awake when this RN went to take vital signs, pt states 'im a , and this is not how i wanted to spend today.' pt was tearful. thanked pt for his service. informed pt that breakfast tray would be here soon. no other requests at this time.
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
--- NOTE | 2024-06-14 13:24 | PC.NURSE ---
contacted pharmacy and spoke with Mendez. there was PO thiamine ordered for pt as well as IM thiamine, Mendez informed this RN that it was okay to give medication in both routes as ordered. one order is an in patient order and the other is with the [place] protocol.
[2024-06-14] MEDS: multivitamin therapeutic Tablet 1 TAB PO (13:34)
[2024-06-14] MEDS: folic acid 1 mg Tablet PO (13:35)
[2024-06-14] MEDS: LORazepam 2 mg Tablet PO ×2 (13:35→17:05)
[2024-06-14] MEDS: thiamine 100 mg Tablet PO (13:36)
[2024-06-14 14:00] VITALS: BP 148/87; BP 168/93; PULSE 74; PULSE 75; RESP 16; TEMP 36.8; O2SAT 94; O2SAT 95
[2024-06-14] MEDS: nicotine 21 mg Patch 1 PATCH TRANSDERMA (15:01)
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
[2024-06-14 16:51] VITALS: BP 164/100; PULSE 63; RESP 19; TEMP 36.7; O2SAT 97
--- NOTE | 2024-06-14 17:27 | PC.NURSE ---
This RN called [facility] in [place], [place] to get patient's last known medications he was discharged with, with permission from the patient. [facility] nurse, Jenniffer, stated he was discharged with the following medication orders: risperidone 0.5mg-1 tablet by mouth at bedtime, depakote 250mg- 1 tablet by mouth twice daily, citalopram 20mg- 1 tablet by mouth at bedtime, and albuterol inhaler- 2 puffs every 6 hours as needed.
--- NOTE | 2024-06-14 18:16 | PC.NURSE ---
Addendum entered by Mariya Burt RN 06/14/24 18:21: Dr. Hameed also ordered citalopram 20mg- 1 tablet by mouth at bedtime Original Note: At [address] Hameed via phone the patient's medications he was taking when he was hospitalized in [place]. He was also informed that the patient's blood pressure was 164/100. He ordered to give the patient ativan per [facility] protocol. No other orders at this time.
[2024-06-14 20:00] VITALS: BP 151/84; PULSE 78; RESP 18; TEMP 36.7; O2SAT 95
[2024-06-14] MEDS: citalopram 20 mg Tablet PO (20:48)
[2024-06-15] VITALS: BP 150/96; PULSE 76; RESP 18; TEMP 36.3; O2SAT 95
[2024-06-15 03:54] VITALS: BP 156/99; PULSE 71; RESP 16; TEMP 36.4; O2SAT 94
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
[2024-06-15 07:27] VITALS: BP 177/102; PULSE 77; RESP 16; TEMP 36.8; O2SAT 98
[2024-06-15] MEDS: LORazepam 2 mg Tablet PO ×2 (07:38→12:24)
--- NOTE | 2024-06-15 07:38 | PC.NURSE ---
Administered 2mg Ativan PO for pt's BP 177/102. pt care is ongoing.
[2024-06-15] MEDS: thiamine 100 mg Tablet PO (09:20)
[2024-06-15] MEDS: folic acid 1 mg Tablet PO (09:20)
[2024-06-15] MEDS: multivitamin therapeutic Tablet 1 TAB PO (09:20)
[2024-06-15 11:20] VITALS: BP 158/95; PULSE 82; RESP 16; TEMP 36.6; O2SAT 95
[2024-06-15 16:00] VITALS: BP 145/91; PULSE 77; RESP 16; TEMP 36.6; O2SAT 96
[2024-06-15 20:00] VITALS: BP 131/83; PULSE 76; RESP 16; TEMP 36.9; O2SAT 96
[2024-06-15] MEDS: citalopram 20 mg Tablet PO (20:17)
[2024-06-16] VITALS (11 sets, daily range): BP systolic 130–163; BP diastolic 57–107; PULSE 62–86; RESP 16–18; TEMP 36.4–36.8; O2SAT 95–99
[2024-06-16] MEDS: LORazepam 2 mg Tablet PO ×3 (04:02→20:02)
--- NOTE | 2024-06-16 04:06 | PC.NURSE ---
ATIVAN 2MG GIVEN AT THIS TIME. PATIENT SHOWING NO SIGNS OF CIWA, EXCEPT BLOOD PRESSURE OF 162/95. CONTINUING TO MONITOR PATIENT.
[2024-06-16] MEDS: nicotine 4 mg lozenge MUCOUS MEM (06:16)
[2024-06-16] MEDS: multivitamin therapeutic Tablet 1 TAB PO (08:10)
[2024-06-16] MEDS: folic acid 1 mg Tablet PO (08:10)
[2024-06-16] MEDS: thiamine 100 mg Tablet PO (08:10)
--- NOTE | 2024-06-16 12:30 | XR_ITS ---
WS: [id number] Chest 2 views, 06/16/2024 Clinical Data: coarse lung sounds Comparison: Portable chest, 04/04/2021 Findings: No nodules, masses or effusions are seen. The heart is normal. The pulmonary vascularity is not increased. No pneumonia or pneumothorax is seen. The diaphragms are flattened. The aortic arch a nd descending thoracic aorta show mild tortuosity. XR/XR chest 2V* [id number] Impression: Atherosclerosis and hyperinflation.
[2024-06-16] MEDS: albuterol 2.5 mg/3 mL Neb INHALATION (12:44)
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
--- NOTE | 2024-06-16 20:00 | PC.NURSE ---
PATIENT GIVEN ATIVAN 2MG PER CIWA PROTOCOL SCORE OF 10.
[2024-06-16] MEDS: citalopram 20 mg Tablet PO (20:02)
[2024-06-16] MEDS: trazodone 50 mg Tablet PO (20:03)
--- NOTE | 2024-06-16 21:30 | PC.NURSE ---
PT IN ROOM RESTING QUIETLY
[2024-06-17] VITALS (7 sets, daily range): BP systolic 139–148; BP diastolic 87–101; PULSE 74–101; RESP 16–18; TEMP 36.5–36.9; O2SAT 95–98
[2024-06-17] MEDS: folic acid 1 mg Tablet PO (08:37)
[2024-06-17] MEDS: multivitamin therapeutic Tablet 1 TAB PO (08:37)
[2024-06-17] MEDS: thiamine 100 mg Tablet PO (08:37)
[2024-06-17] MEDS: albuterol 2.5 mg/3 mL Neb INHALATION (17:01)
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
[2024-06-17] MEDS: nicotine 4 mg lozenge MUCOUS MEM (20:44)
[2024-06-17] MEDS: citalopram 20 mg Tablet PO (20:44)
[2024-06-17] MEDS: trazodone 50 mg Tablet PO (20:47)
[2024-06-18] VITALS: BP 141/86; PULSE 88; RESP 18; TEMP 36.6; O2SAT 99
[2024-06-18 03:59] VITALS: BP 146/82; PULSE 61; RESP 18; TEMP 36.7; O2SAT 96
[2024-06-18] MEDS: hyDROXYzine 25 mg Capsule 50 MG PO (04:11)
[2024-06-18 07:25] VITALS: BP 146/95; PULSE 70; RESP 16; TEMP 36.6; O2SAT 98
[2024-06-18] MEDS: folic acid 1 mg Tablet PO (08:27)
[2024-06-18] MEDS: multivitamin therapeutic Tablet 1 TAB PO (08:27)
[2024-06-18] MEDS: thiamine 100 mg Tablet PO (08:27)
[2024-06-18 11:49] VITALS: BP 151/92; PULSE 58; RESP 16; TEMP 36.6; O2SAT 99
[2024-06-18 16:00] VITALS: BP 142/85; PULSE 63; RESP 16; TEMP 36.9; O2SAT 97
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
[2024-06-18] MEDS: citalopram 20 mg Tablet PO (20:32)
[2024-06-18] MEDS: quetiapine 25 mg Tablet 50 MG PO (20:32)
[2024-06-18 20:52] VITALS: BP 136/85; PULSE 86; RESP 18; TEMP 37.1; O2SAT 98
[2024-06-19] VITALS (7 sets, daily range): BP systolic 139–162; BP diastolic 82–101; PULSE 60–88; RESP 16–18; TEMP 36.6–36.9; O2SAT 96–99
[2024-06-19] MEDS: folic acid 1 mg Tablet PO (08:19)
[2024-06-19] MEDS: multivitamin therapeutic Tablet 1 TAB PO (08:19)
[2024-06-19] MEDS: thiamine 100 mg Tablet PO (08:19)
[2024-06-19] MEDS: nicotine 21 mg Patch 1 PATCH TRANSDERMA (08:22)
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
--- NOTE | 2024-06-19 11:21 | PC.NURSE ---
This nurse talked with Kvng at [facility] who said that he does not have a bed available for patient, and probably won't have a bed for several months. Patient and Dr. Hameed notified.
[2024-06-19] MEDS: trazodone 50 mg Tablet PO (21:13)
[2024-06-19] MEDS: albuterol 2.5 mg/3 mL Neb INHALATION (21:13)
[2024-06-19] MEDS: citalopram 20 mg Tablet PO (21:13)
[2024-06-19] MEDS: doxepin 10 mg Capsule PO (21:13)
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
[2024-06-20 06:00] VITALS: BP 164/89; PULSE 73; RESP 17; TEMP 36.7; O2SAT 97
[2024-06-20] MEDS: nicotine 4 mg lozenge MUCOUS MEM (06:51)
[2024-06-20] MEDS: folic acid 1 mg Tablet PO (09:02)
[2024-06-20] MEDS: naltrexone hcl 50 mg Tablet PO (09:02)
[2024-06-20] MEDS: thiamine 100 mg Tablet PO (09:02)
[2024-06-20] MEDS: multivitamin therapeutic Tablet 1 TAB PO (09:03)
[2024-06-20] MEDS: hyDROXYzine 25 mg Capsule 50 MG PO (09:08)
[2024-06-20] MEDS: nicotine 21 mg Patch 1 PATCH TRANSDERMA (13:48)
[2024-06-20 14:00] VITALS: BP 142/88; PULSE 59; RESP 14; TEMP 37; O2SAT 99
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
[2024-06-20] MEDS: trazodone 50 mg Tablet PO (20:01)
[2024-06-20] MEDS: citalopram 20 mg Tablet PO (20:01)
[2024-06-20] MEDS: doxepin 25 mg Capsule PO (20:01)
[2024-06-20 20:10] VITALS: BP 160/89; PULSE 75; RESP 18; TEMP 36.7; O2SAT 94
[2024-06-21 06:00] VITALS: BP 149/85; PULSE 72; RESP 17; TEMP 36.5; O2SAT 95
[2024-06-21] MEDS: folic acid 1 mg Tablet PO (08:25)
[2024-06-21] MEDS: multivitamin therapeutic Tablet 1 TAB PO (08:25)
[2024-06-21] MEDS: naltrexone hcl 50 mg Tablet PO (08:25)
[2024-06-21] MEDS: nicotine 4 mg lozenge MUCOUS MEM (08:25)
[2024-06-21] MEDS: thiamine 100 mg Tablet PO (08:26)
[2024-06-21] MEDS: hyDROXYzine 25 mg Capsule 50 MG PO (12:52)
[2024-06-21 13:58] VITALS: BP 149/87; PULSE 73; RESP 16; TEMP 36.8; O2SAT 96
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
[2024-06-21 19:54] VITALS: BP 157/96; PULSE 71; RESP 18; TEMP 36.7; O2SAT 97
[2024-06-21] MEDS: trazodone 50 mg Tablet PO (20:11)
[2024-06-21] MEDS: doxepin 25 mg Capsule PO (20:11)
[2024-06-21] MEDS: citalopram 20 mg Tablet 30 MG PO (20:11)
[2024-06-22 05:21] VITALS: BP 137/88; PULSE 70; RESP 18; TEMP 36.4; O2SAT 94
[2024-06-22] MEDS: thiamine 100 mg Tablet PO (08:06)
[2024-06-22] MEDS: naltrexone hcl 50 mg Tablet PO (08:06)
[2024-06-22] MEDS: folic acid 1 mg Tablet PO (08:06)
[2024-06-22] MEDS: multivitamin therapeutic Tablet 1 TAB PO (08:06)
[2024-06-22] MEDS: nicotine 4 mg lozenge MUCOUS MEM (10:18)
[2024-06-22 14:00] VITALS: BP 102/69; PULSE 100; RESP 16; TEMP 36.6; O2SAT 97
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
[2024-06-22] MEDS: albuterol 2.5 mg/3 mL Neb INHALATION (20:10)
[2024-06-22 20:11] VITALS: PULSE 69; RESP 18; O2SAT 97
[2024-06-22] MEDS: hyDROXYzine 25 mg Capsule 50 MG PO (20:19)
[2024-06-22] MEDS: doxepin 25 mg Capsule PO (20:19)
[2024-06-22] MEDS: citalopram 20 mg Tablet 30 MG PO (20:19)
[2024-06-22] MEDS: trazodone 50 mg Tablet PO (20:19)
[2024-06-22 20:21] VITALS: BP 161/92; PULSE 66; RESP 20; TEMP 36.5; O2SAT 97
[2024-06-23 06:00] VITALS: BP 151/89; PULSE 74; RESP 16; TEMP 36.7; O2SAT 98
[2024-06-23] MEDS: folic acid 1 mg Tablet PO (09:03)
[2024-06-23] MEDS: naltrexone hcl 50 mg Tablet PO (09:03)
[2024-06-23] MEDS: multivitamin therapeutic Tablet 1 TAB PO (09:03)
[2024-06-23] MEDS: nicotine 2 mg Gum BUCCAL (09:03)
[2024-06-23] MEDS: thiamine 100 mg Tablet PO (09:03)
[2024-06-23] MEDS: nicotine 21 mg Patch 1 PATCH TRANSDERMA (09:18)
[2024-06-23 14:00] VITALS: BP 118/79; PULSE 77; RESP 16; TEMP 36.6; O2SAT 100
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
[2024-06-23 19:43] VITALS: BP 147/88; PULSE 72; RESP 17; TEMP 36.4; O2SAT 95
[2024-06-23] MEDS: nicotine 4 mg lozenge MUCOUS MEM (20:34)
[2024-06-23] MEDS: citalopram 20 mg Tablet 30 MG PO (21:13)
[2024-06-23] MEDS: trazodone 50 mg Tablet PO (21:14)
[2024-06-23] MEDS: doxepin 25 mg Capsule PO (21:14)
[2024-06-24 06:00] VITALS: BP 131/90; PULSE 60; RESP 17; TEMP 36.4; O2SAT 96
[2024-06-24] MEDS: nicotine 4 mg lozenge MUCOUS MEM (06:48)
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
[2024-06-24] MEDS: multivitamin therapeutic Tablet 1 TAB PO (08:36)
[2024-06-24] MEDS: thiamine 100 mg Tablet PO (08:36)
[2024-06-24] MEDS: naltrexone hcl 50 mg Tablet PO (08:36)
[2024-06-24] MEDS: folic acid 1 mg Tablet PO (08:36)
== END 2024-06-24 12:48 | disposition home or self-care (01) | DRG 881 ==
LOC: ER 23:08 → ER IP 06-14 07:50 → NP 06-14 13:47
PROVIDERS: Admitting Provider Psychiatry & Neurology Psychiatry; Emergency Provider Emergency Medicine; Visit Provider Psychiatry & Neurology Psychiatry
DX: F32.9 Major depressive disorder, single episode, unspecified (principal); F10.239 Alcohol dependence with withdrawal, unspecified; R45.851 Suicidal ideations; F43.10 Post-traumatic stress disorder, unspecified; Y90.7 Blood alcohol level of 200-239 mg/100 ml; F17.210 Nicotine dependence, cigarettes, uncomplicated; F41.1 Generalized anxiety disorder; Z59.89 Other problems related to housing and economic circumstances; Z63.4 Disappearance and death of family member
CPT/HCPCS: 36415; 71046; 80053; 80306; 80307; 84443; 85025; 94640; 96372; 97150; 97165; 99285; J3411; J7613